=== PATIENT | male | born 1940 | race Caucasian/White ===

== ENCOUNTER 2020-09-20 14:27 | Outpatient (CLI) | payer MEDICARE, BC, SELFPAY ==
[2020-09-20 15:48] LABS: Calcium 9.6 mg/dL (8.5-10.5)
[2020-09-20] MEDS: denosumab 60 mg SDV SUBCUT (16:09)
== END 2020-09-20 14:28 | disposition home or self-care (01) ==
PROVIDERS: Nurse Practitioner; PCP Internal Medicine; Visit Provider Internal Medicine Medical Oncology
DX: M80.08XA Age-related osteoporosis with current pathological fracture, vertebra(e), initial encounter for fracture (principal)
CPT/HCPCS: 82310; 96372; J0897

== ENCOUNTER 2020-11-28 12:54 | Outpatient (CLI) | payer MEDICARE, BC, SELFPAY ==
--- NOTE | 2020-11-28 | XR_ITS ---
WS: [id number] CERVICAL SPINE FLEXION EXTENSION TECHNIQUE: 3 views of the cervical spine: lateral neutral, flexion and extension views. CLINICAL INFORMATION: CERVICALGIA AND PAIN IN THORACIC SPINE COMPARISON: None. FINDINGS: Slight anterolisthesis C3 on C4. Otherwise normal cervical alignment on the neutral view. No instabil ity on flexion-extension. Disc space narrowing worse at C5-6. C7 not well visualized due to shoulder overlap. Normal C1-2 articulation. Posterior elements are normal. No other significant findings. XR/XR cervical spine fl/ex [id number] IMPRESSION: No instability on flexion-extension
--- NOTE | 2020-11-28 | XR_ITS ---
WS: [id number] THORACIC SPINE TECHNIQUE: 3 views of the thoracic spine CLINICAL INFORMATION: PAIN IN THORACIC SPINE COMPARISON: None. FINDINGS: Mild thoracic curve convex left. Sternotomy. Aortic calcification. Cholecystectomy clips. Mild thorac ic kyphosis with chronic appearing anterior wedging in the mid and lower thoracic spine. Anterior wed ging at the thoracolumbar junction with vertebroplasty changes. Partially visualized aortic endograft . XR/XR thoracic spine 3V* [id number] IMPRESSION: 1. Mild thoracic curve and thoracic kyphosis. Osteopenia. 2. Chronic anterior wedging in the mid and lower thoracic spine with prior irving tebroplasty changes at the thoracolumbar junction. 3. No acute appearing thoracic spine findings.
== END 2020-11-28 12:55 | disposition home or self-care (01) ==
PROVIDERS: PCP Internal Medicine; Visit Provider Anesthesiology Pain Medicine
DX: M54.2 Cervicalgia (principal); M54.6 Pain in thoracic spine; M85.88 Other specified disorders of bone density and structure, other site; M48.54XA Collapsed vertebra, not elsewhere classified, thoracic region, initial encounter for fracture
CPT/HCPCS: 72040; 72072

== ENCOUNTER 2021-03-23 13:53 | Outpatient (CLI) | payer MEDICARE, BC, SELFPAY ==
[2021-03-23 15:04] LABS: Albumin Level 3.8 g/dL (3.5-5.2); Calcium 8.8 mg/dL (8.5-10.5)
== END 2021-03-23 13:54 | disposition home or self-care (01) ==
PROVIDERS: PCP Internal Medicine; Referring Provider Nurse Practitioner; Visit Provider Nurse Practitioner
DX: M81.0 Age-related osteoporosis without current pathological fracture (principal)
CPT/HCPCS: 36415; 82040; 82310

== ENCOUNTER 2021-03-28 11:15 | Outpatient (CLI) | payer MEDICARE, BC, SELFPAY ==
[2021-03-28 11:25] VITALS: BP 139/68; PULSE 75; RESP 18; TEMP 36.7; O2SAT 94
[2021-03-28] MEDS: denosumab 60 mg SDV SUBCUT (11:39)
== END 2021-03-28 11:16 | disposition home or self-care (01) ==
LOC: ONCMED 11:16
PROVIDERS: PCP Internal Medicine; Referring Provider Nurse Practitioner; Visit Provider Nurse Practitioner
DX: M81.0 Age-related osteoporosis without current pathological fracture (principal)
CPT/HCPCS: 96372; J0897

== ENCOUNTER 2021-04-26 17:02 | Emergency (ER) | payer MEDICARE, BC, SELFPAY ==
[2021-04-26] VITALS (7 sets, daily range): BP systolic 102–157; BP diastolic 58–99; PULSE 65–75; RESP 15–20; TEMP 36.6; O2SAT 91–96; BMI 30.5
--- NOTE | 2021-04-26 17:17 | ECG_ITS ---
[facility] Test Date: 2021-04-26 Pat Name: Florian Castillo Department: Room: Gender: Male [employer]illing [employer]: : 1940 Requested By: Murali Sultana Order Number: [id number] Raulito MD: Komal Parada M.D. Measurements Intervals May Rate: 82 P: MI: QRS: -82 QRSD: 92 T: 52 QT: 387 QTc: 452 Interpretive Statements ATRIAL FIBRILLATION WITH ABERRANT CONDUCTION OR VENTRICULAR PREMATURE COMPLEXES LEFT AXIS DEVIATION [QRS AXIS < -30] PATTERN CONSISTENT WITH PULMONARY DISEASE NONSPECIFIC ST & T-WAVE ABNORMALITY INTERPRETATION BASED ON A DEFAULT AGE OF 40 YEARS Compared to ECG 05/29/2018 07:52:06 Left-axis deviation now present T-wave abnormality now present Atrial abnormality no longer present ST (T wave) deviation no longer present Electronically Signed On 04-26-2021 23:02:27 CDT by Komal Parada M.D. [id number]
--- NOTE | 2021-04-26 17:17 | XRR_ITS ---
PROCEDURE INFORMATION: Exam: XR Chest Exam date and time: 04/26/2021 5:17 PM Age: 80 years old Clinical indication: Cough; Prior surgery; Surgery type: Cabg TECHNIQUE: Imaging protocol: XR of the chest. Views: 1 view. COMPARISON: CR Chest 1 [place] [id number] 05/27/2018 8:50 PM FINDINGS: Lungs: Mild pulmonary vascular congestion. Bibasilar atelectasis. Pleural spaces: Unremarkable. No pleural effusion. No pneumothorax. Heart/Mediastinum: Cardiomegaly. Bones/joints: Sternotomy wires. XR/XR chest 1V portable [id number] IMPRESSION: 1. Cardiomegaly. 2. Mild pulmonary vascular congestion. 3. Bibasilar atelectasis. Radiation Dose CTDIVOL = (mGy): DLP = (mGy-cm)
--- NOTE | 2021-04-26 17:20 | W.ED.CHESTPA ---
Documented by User: Murali Sultana MD 04/26/21 17:22 HPI - Chest Pain General: Chief Complaint: Chest Pain Stated Complaint: ACTIVE CHEST PAIN Time Seen by Provider: 04/26/21 17:17 History of Present Illness: HPI narrative: This patient is a 80-year-old male who presents to the emergency department with complaint of chest pain. Patient took 2 nitro and now is chest pain-free. Patient has had triple bypass cardiac surgery twice last one was in 2008. Patient states he has had atypical type chest pain symptoms relieved by nitro in the past but this was the first time that he had chest pain like this since his previous bypass. We will do medical evaluation treat as needed MD complaint: chest pain and chest discomfort Pertinent past history: coronary artery disease, prior ND and CABG Onset (ago): minute(s) Timing of current episode: now resolved Onset: during rest Pain location: substernal Pain radiation: none Relieving factors: nitroglycerin Associated symptoms: Deny abdominal pain, dyspnea, fever(s), nausea, palpitations or vomiting Review of Systems General: Reports: 10 or more systems reviewed and unremarkable except in HPI and below Const: Denies: fever(s), chills, body aches or fatigue Eyes: Denies: change in vision or blurry vision ENMT: Denies: throat pain, hoarseness or mouth pain Card: Reports: chest pain; Denies: palpitations, irregular heart rhythm, edema, swelling of feet/ankles or lightheadedness Resp: Denies: dyspnea, productive cough, non-productive cough, wheezing or pain on inspiration GI: Denies: abdominal pain, nausea or vomiting : Denies: flank pain, dysuria, urinary frequency, urinary urgency or urinary hesitancy Musc: Denies: neck pain, back pain, extremity pain, extremity swelling, joint pain, joint swelling, joint redness, joint warmth or limited range of motion Skin/Breast: Denies: rash, pruritus, erythema or skin tenderness Neuro: Denies: headache(s), numbness in extremities or weakness in extremities Psych: Denies: anxiety or depression PFS ED PFSH: Medical History CAD (coronary artery disease) HTN (hypertension) Surgical History S/P AAA (abdominal aortic aneurysm) repair Family History Mother Hypertension Myocardial infarction Social History Alcohol intake: never Physical Exam Const: COMMON NORMALS: no acute distress, average body habitus, patient oriented x3, no limitations, healthy appearing, alert and well nourished HENMT: COMMON NORMALS: normocephalic, atraumatic, hearing grossly normal bilaterally, external ears normal, EAC's normal, TM's normal bilaterally, Normal external nose present, Normal nasal mucous membranes and turbinates present, moist oral mucous membranes, oropharynx normal, dentition normal and gingiva normal HEAD & SCALP: normocephalic and atraumatic NOSE: Normal external nose present and Normal nasal mucous membranes and turbinates present EXTERNAL EAR: Yes external ears normal EXTERNAL AUDITORY CANAL: EAC's normal TYMPANIC MEMBRANE: TM's normal bilaterally Neck/C-Spine: COMMON NORMALS: full ROM, no lymphadenopathy, supple, no meningeal signs, no JVD, Thyroid normal and No carotid bruits THYROID: Thyroid normal Chest: COMMONS NORMALS: normal inspection of the chest, normal palpation of entire chest wall, normal inspection of the breasts and normal palpation of the breasts Breast/axilla inspection: Yes normal inspection of the breasts BREAST/AXILLA PALPATION: Yes normal palpation of the breasts Resp: COMMON NORMALS: normal respiratory effort, No retractions, No use of accessory muscles, clear to auscultation bilaterally and percussion normal AUSCULTATION: clear to auscultation bilaterally PERCUSSION: percussion normal Cardio: COMMON NORMALS: no JVD, regular rate, regular rhythm, S1 normal heart sound present, S2 normal heart sound present, No gallops present (Cardio), No clicks present (Cardio), No murmurs present (Cardio), No rub (Cardio) and Peripheral pulses 2+ throughout RATE: regular rate RHYTHM: regular rhythm HEART SOUNDS: S1 normal heart sound present and S2 normal heart sound present PERIPHERAL PULSES: Peripheral pulses 2+ throughout GI: COMMON NORMALS: Normal to inspection, nondistended, normoactive bowel sounds present, Soft to palpation, non-tender, No hepatosplenomegaly present, no masses and no bruits PALPATION: Yes Soft to palpation and Yes No hepatosplenomegaly present : COMMON NORMALS: Yes no CVA tenderness BLADDER/KIDNEY EXAM: Yes no CVA tenderness Back/Pelvis: COMMON NORMALS: no CVA tenderness, thoracic and lumbar spine normal to inspection, no thoracic nor lumbar tenderness, thoraco-lumbar ROM normal and straight leg raise negative bilaterally Extremity: COMMON NORMALS: normal to inspection, full ROM, capillary refill normal, no joint enlargement, no clubbing, cyanosis or edema, no calf tenderness and no pedal edema Neuro: COMMON NORMALS: patient oriented x3 SENSORIUM/ORIENTATION: Yes alert MENINGEAL SIGNS: Yes no meningeal signs Course ED course: Care transferred to Dr. Haq for shift change Vital Signs: Vital signs: Vital Signs Temperature 97.8 F 04/26/21 17:23 Pulse Rate 75 04/26/21 21:08 Respiratory Rate 18 04/26/21 21:08 Blood Pressure 157/99 04/26/21 21:08 Pulse Oximetry 96 04/26/21 21:08 MDM - Chest Pain MDM Narrative: Medical decision making narrative: This patient is a 80-year-old male who presents to the emergency department with complaint of chest pain. Patient took 2 nitro and now is chest pain-free. Patient has had triple bypass cardiac surgery twice last one was in 2008. Patient states he has had atypical type chest pain symptoms relieved by nitro in the past but this was the first time that he had chest pain like this since his previous bypass. We will do medical evaluation treat as needed Lab Data: Labs: Lab Results 04/26/21 04/26/21 04/26/21 17:54 17:54 17:54 WBC 5.3 10^3/uL 10^3/ uL (4.0-10.0) RBC 3.85 10^6/uL L 10 ^6/uL (4.1-5.3) Hgb 11.9 g/dL g/dL (11.7-16.6) Hct 37.7 % L % (42.0-52.0) MCV 97.9 fl H fl (80-94) MCH 30.9 pg pg (28.0-34.0) MCHC 31.6 g/dL g/dL (30.0-36.0) RDW 13.5 % % (12.1-15.1) Plt Count 220 10^3/cmm 10^3 /cmm (130-400) MPV 9.7 fL fL (7.4-10.4) Neut % (Auto) 45.0 % % Lymph % (Auto) 39.7 % % [place] % (Auto) 7.5 % % Eos % (Auto) 6.6 % % Baso % (Auto) 0.6 % % Neut # (Auto) 2.40 10^3/uL 10^3 /uL (1.8-7.7) Lymph # (Auto) 2.1 10^3/uL 10^3/ uL (0.8-4.8) [place] # (Auto) 0.4 10^3/uL 10^3/ uL (0.2-0.9) Eos # (Auto) 0.4 10^3/uL 10^3/ uL (0.0-0.8) Baso # (Auto) 0.0 10^3/uL 10^3/ uL (0.0-0.1) Nucleated RBC % (a uto) 0 % % Nucleated RBCs # 0.0 /100WBC /100W BC Sodium 138 mmol/L mmol/L (136-145) Potassium 3.9 mmol/L mmol/L (3.5-5.1) Chloride 99 mmol/L mmol/L (98-107) Carbon Dioxide 28 mmol/L mmol/L (22-29) Anion Gap 14.9 (5-19) BUN 24 mg/dL H mg/dL (8-23) Creatinine 1.1 mg/dL mg/dL (0.7-1.2) GFR Calculation Not Reportable Glucose 140 mg/dL H mg/dL (65-115) Calculated Osmolal ity 292 mOsm/kg mOsm/ kg (285-295) Calcium 8.5 mg/dL mg/dL (8.5-10.5) Total Bilirubin 0.4 mg/dL mg/dL (0.15-1.2) AST 11 U/L U/L (0-40) ALT 8 U/L U/L (0-41) Alkaline Phosphata se 66 IU/L IU/L (40-130) Troponin T Baselin e 12 ng/L ng/L (0-15) Troponin T 120 Min lance Delta Troponin T Total Protein 5.9 g/dL L g/dL (6.6-8.7) Albumin 3.6 g/dL g/dL (3.5-5.2) Globulin 2.3 g/dL g/dL (1.3-4.6) Urine Color Urine Appearance Urine pH Ur Specific Gravit y Urine Protein Urine Glucose (UA) Urine Ketones Urine Blood Urine Nitrate Urine Bilirubin Urine Urobilinogen Ur Leukocyte Ina ase Urine RBC Urine WBC Ur Squamous Epith Cells Amorphous Sediment Urine Bacteria 04/26/21 04/26/21 17:54 19:59 WBC RBC Hgb Hct MCV MCH MCHC RDW Plt Count MPV Neut % (Auto) Lymph % (Auto) [place] % (Auto) Eos % (Auto) Baso % (Auto) Neut # (Auto) Lymph # (Auto) [place] # (Auto) Eos # (Auto) Baso # (Auto) Nucleated RBC % (a uto) Nucleated RBCs # Sodium Potassium Chloride Carbon Dioxide Anion Gap BUN Creatinine GFR Calculation Glucose Calculated Osmolal ity Calcium Total Bilirubin AST ALT Alkaline Phosphata se Troponin T Baselin e Troponin T 120 Min lance 11.90 ng/L ng/L (0-15) Delta Troponin T -0.10 ABS# L ABS# (0-10) Total Protein Albumin Globulin Urine Color Yellow (Yellow) Urine Appearance Hazy A (CLEAR) Urine pH 5 (5-7) Ur Specific Gravit y 1.020 (1.005-1.030) Urine Protein Neg (Negative) Urine Glucose (UA) Norm (Normal) Urine Ketones Negative (Negative) Urine Blood Neg (Negative) Urine Nitrate Negative (Negative) Urine Bilirubin Neg (Negative) Urine Urobilinogen Norm mg/dL mg/dL (Negative) Ur Leukocyte Ina ase Trace H (Negative) Urine RBC 0-4 /hpf H /hpf (0-2) Urine WBC 5-10 /hpf H /hpf (0-5) Ur Squamous Epith Cells 5-10 /hpf H /hpf (0-5) Amorphous Sediment Not Reportable Urine Bacteria Trace /hpf /hpf (NONE) Discharge Plan Discharge Patient Disposition: Home Clinical Impression: Chest pain Qualifiers: Chest pain type: unspecified Qualified Code(s): R07.9 - Chest pain, unspecified Condition: Stable Prescriptions: No Action isosorbide mononitrate 60 mg tablet extended release 24 hr 30 mg PO BID RF: 0 hydrochlorothiazide 25 mg tablet 12.5 mg PO BID RF: 0 potassium chloride 10 mEq tablet,ER particles/crystals 10 meq PO DAILY Qty: 90 RF: 3 nitroglycerin [Nitrostat] 0.4 mg tablet, sublingual 0.4 mg SUBLINGUAL Q5M PRN (Reason: chest pain) Qty: 25 RF: 3 terazosin 1 mg capsule 1 mg PO DAILY RF: 0 finasteride 5 mg tablet 5 mg PO DAILY RF: 0 hydrocodone-acetaminophen 7.5-325 mg tablet 1 tab PO TID PRNRF: 0 meclizine 12.5 mg tablet 12.5 mg PO TID PRNRF: 0 citalopram 20 mg tablet 20 mg PO DAILY RF: 0 furosemide [Lasix] 20 mg tablet 20 mg PO DAILY RF: 0 pantoprazole 40 mg tablet,delayed release (DR/EC) 40 mg PO DAILY Qty: 90 RF: 3 Eliquis 5 mg tablet 5 mg PO BID Qty: 180 RF: 3 losartan 100 mg tablet 50 mg PO BID Qty: 90 RF: 3 clonidine HCl 0.1 mg tablet 0.05 mg PO BID PRN (Reason: hypertensive emergency) Qty: 60 RF: 3 ranolazine [Ranexa] 500 mg tablet extended release 12 hr 500 mg PO BID Qty: 180 RF: 3 cilostazol 50 mg tablet 50 mg PO BID Qty: 180 RF: 0 Discharge Orders: Discharge ED (Routine); Ordered 04/26/21 Ordered By: Petty Haq Referrals: Damon Don DO [Primary Care Provider] - 1-3 days Discharge Diet: Advance as tolerated Discharge Activity: Resume usual activity Patient Instructions: Chest Pain (ED) Coding Level of Care Code ED Respiratory Services Manager for Chg Fwd Exam Comprehensive Documented by User: Petty Haq MD 04/26/21 21:17 HPI - Chest Pain General: Chief Complaint: Chest Pain Stated Complaint: ACTIVE CHEST PAIN Time Seen by Provider: 04/26/21 17:17 [facility] ED PFSH: Medical History CAD (coronary artery disease) HTN (hypertension) Surgical History S/P AAA (abdominal aortic aneurysm) repair Family History Mother Hypertension Myocardial infarction Social History Alcohol intake: never Course Vital Signs: Vital signs: Vital Signs Temperature 97.8 F 04/26/21 17:23 Pulse Rate 75 04/26/21 21:08 Respiratory Rate 18 04/26/21 21:08 Blood Pressure 157/99 04/26/21 21:08 Pulse Oximetry 96 04/26/21 21:08 MDM - Chest Pain MDM Narrative: Medical decision making narrative: Patient presents here with chest pain I took him over from Dr. Sultana. Patient's EKGs and troponins here are negative. He is well-appearing here in no distress. He has no signs of acute coronary syndrome or pulmonary embolism. He is stable for discharge is to follow-up his PCP in 3 to 5 days return if worsening. Lab Data: Labs: Lab Results 04/26/21 04/26/21 04/26/21 17:54 17:54 17:54 WBC 5.3 10^3/uL 10^3/ uL (4.0-10.0) RBC 3.85 10^6/uL L 10 ^6/uL (4.1-5.3) Hgb 11.9 g/dL g/dL (11.7-16.6) Hct 37.7 % L % (42.0-52.0) MCV 97.9 fl H fl (80-94) MCH 30.9 pg pg (28.0-34.0) MCHC 31.6 g/dL g/dL (30.0-36.0) RDW 13.5 % % (12.1-15.1) Plt Count 220 10^3/cmm 10^3 /cmm (130-400) MPV 9.7 fL fL (7.4-10.4) Neut % (Auto) 45.0 % % Lymph % (Auto) 39.7 % % [place] % (Auto) 7.5 % % Eos % (Auto) 6.6 % % Baso % (Auto) 0.6 % % Neut # (Auto) 2.40 10^3/uL 10^3 /uL (1.8-7.7) Lymph # (Auto) 2.1 10^3/uL 10^3/ uL (0.8-4.8) [place] # (Auto) 0.4 10^3/uL 10^3/ uL (0.2-0.9) Eos # (Auto) 0.4 10^3/uL 10^3/ uL (0.0-0.8) Baso # (Auto) 0.0 10^3/uL 10^3/ uL (0.0-0.1) Nucleated RBC % (a uto) 0 % % Nucleated RBCs # 0.0 /100WBC /100W BC Sodium 138 mmol/L mmol/L (136-145) Potassium 3.9 mmol/L mmol/L (3.5-5.1) Chloride 99 mmol/L mmol/L (98-107) Carbon Dioxide 28 mmol/L mmol/L (22-29) Anion Gap 14.9 (5-19) BUN 24 mg/dL H mg/dL (8-23) Creatinine 1.1 mg/dL mg/dL (0.7-1.2) GFR Calculation Not Reportable Glucose 140 mg/dL H mg/dL (65-115) Calculated Osmolal ity 292 mOsm/kg mOsm/ kg (285-295) Calcium 8.5 mg/dL mg/dL (8.5-10.5) Total Bilirubin 0.4 mg/dL mg/dL (0.15-1.2) AST 11 U/L U/L (0-40) ALT 8 U/L U/L (0-41) Alkaline Phosphata se 66 IU/L IU/L (40-130) Troponin T Baselin e 12 ng/L ng/L (0-15) Troponin T 120 Min lance Delta Troponin T Total Protein 5.9 g/dL L g/dL (6.6-8.7) Albumin 3.6 g/dL g/dL (3.5-5.2) Globulin 2.3 g/dL g/dL (1.3-4.6) Urine Color Urine Appearance Urine pH Ur Specific Gravit y Urine Protein Urine Glucose (UA) Urine Ketones Urine Blood Urine Nitrate Urine Bilirubin Urine Urobilinogen Ur Leukocyte Ina ase Urine RBC Urine WBC Ur Squamous Epith Cells Amorphous Sediment Urine Bacteria 04/26/21 04/26/21 17:54 19:59 WBC RBC Hgb Hct MCV MCH MCHC RDW Plt Count MPV Neut % (Auto) Lymph % (Auto) [place] % (Auto) Eos % (Auto) Baso % (Auto) Neut # (Auto) Lymph # (Auto) [place] # (Auto) Eos # (Auto) Baso # (Auto) Nucleated RBC % (a uto) Nucleated RBCs # Sodium Potassium Chloride Carbon Dioxide Anion Gap BUN Creatinine GFR Calculation Glucose Calculated Osmolal ity Calcium Total Bilirubin AST ALT Alkaline Phosphata se Troponin T Baselin e Troponin T 120 Min lance 11.90 ng/L ng/L (0-15) Delta Troponin T -0.10 ABS# L ABS# (0-10) Total Protein Albumin Globulin Urine Color Yellow (Yellow) Urine Appearance Hazy A (CLEAR) Urine pH 5 (5-7) Ur Specific Gravit y 1.020 (1.005-1.030) Urine Protein Neg (Negative) Urine Glucose (UA) Norm (Normal) Urine Ketones Negative (Negative) Urine Blood Neg (Negative) Urine Nitrate Negative (Negative) Urine Bilirubin Neg (Negative) Urine Urobilinogen Norm mg/dL mg/dL (Negative) Ur Leukocyte Ina ase Trace H (Negative) Urine RBC 0-4 /hpf H /hpf (0-2) Urine WBC 5-10 /hpf H /hpf (0-5) Ur Squamous Epith Cells 5-10 /hpf H /hpf (0-5) Amorphous Sediment Not Reportable Urine Bacteria Trace /hpf /hpf (NONE) Discharge Plan Discharge Patient Disposition: Home Clinical Impression: Chest pain Qualifiers: Chest pain type: unspecified Qualified Code(s): R07.9 - Chest pain, unspecified Condition: Stable Prescriptions: No Action isosorbide mononitrate 60 mg tablet extended release 24 hr 30 mg PO BID RF: 0 hydrochlorothiazide 25 mg tablet 12.5 mg PO BID RF: 0 potassium chloride 10 mEq tablet,ER particles/crystals 10 meq PO DAILY Qty: 90 RF: 3 nitroglycerin [Nitrostat] 0.4 mg tablet, sublingual 0.4 mg SUBLINGUAL Q5M PRN (Reason: chest pain) Qty: 25 RF: 3 terazosin 1 mg capsule 1 mg PO DAILY RF: 0 finasteride 5 mg tablet 5 mg PO DAILY RF: 0 hydrocodone-acetaminophen 7.5-325 mg tablet 1 tab PO TID PRNRF: 0 meclizine 12.5 mg tablet 12.5 mg PO TID PRNRF: 0 citalopram 20 mg tablet 20 mg PO DAILY RF: 0 furosemide [Lasix] 20 mg tablet 20 mg PO DAILY RF: 0 pantoprazole 40 mg tablet,delayed release (DR/EC) 40 mg PO DAILY Qty: 90 RF: 3 Eliquis 5 mg tablet 5 mg PO BID Qty: 180 RF: 3 losartan 100 mg tablet 50 mg PO BID Qty: 90 RF: 3 clonidine HCl 0.1 mg tablet 0.05 mg PO BID PRN (Reason: hypertensive emergency) Qty: 60 RF: 3 ranolazine [Ranexa] 500 mg tablet extended release 12 hr 500 mg PO BID Qty: 180 RF: 3 cilostazol 50 mg tablet 50 mg PO BID Qty: 180 RF: 0 Discharge Orders: Discharge ED (Routine); Ordered 04/26/21 Ordered By: Petty Haq Referrals: Damon Don DO [Primary Care Provider] - 1-3 days Discharge Diet: Advance as tolerated Discharge Activity: Resume usual activity Patient Instructions: Chest Pain (ED) Coding Level of Care Code ED Respiratory Services Manager for Melany Fwd Exam Comprehensive
[2021-04-26 18:01] LABS: Basophils % 0.6 %; Eosinophils # 0.4 10^3/uL (0.0-0.8); Eosinophils % 6.6 %; Hematocrit 37.7 % (42.0-52.0); Hemoglobin 11.9 g/dL (11.7-16.6); Lymphocytes # 2.1 10^3/uL (0.8-4.8); Lymphocytes % 39.7 %; Mean Corpuscular HGB Conc 31.6 g/dL (30.0-36.0); Mean Corpuscular Hemoglobin 30.9 pg (28.0-34.0); Mean Corpuscular Volume 97.9 fl (80-94); Mean Platelet Volume 9.7 fL (7.4-10.4); Monocytes # 0.4 10^3/uL (0.2-0.9); Monocytes % 7.5 %; Nucleated Red Blood Cells % 0 %; Platelet Count 220 10^3/cmm (130-400); Red Blood Count 3.85 10^6/uL (4.1-5.3); Red Cell Distribution Width 13.5 % (12.1-15.1); White Blood Count 5.3 10^3/uL (4.0-10.0)
--- NOTE | 2021-04-26 18:13 | PC.NURSE ---
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 PATIENT HAS NO FURTHER NEEDS AT THIS TIME.
[2021-04-26 18:15] LABS: Add Urine Culture? No; Add Urine Microscopic? YES; Bacteria Urine TRACE /hpf; Bilirubin Urine Neg (Negative); Blood Urine Neg (Negative); Glucose Urine UA Norm (Normal); Ketones Urine Negative (Negative); Leukocyte Esterase Urine Trace (Negative); Nitrate Urine Negative (Negative); Protein Urine Neg (Negative); RBC Urine 0-4 /hpf (0-2); Urine Appearance Hazy (CLEAR); Urine Color Yellow (Yellow); Urobilinogen Urine Norm (Negative); pH Urine 5 (5-7)
[2021-04-26 18:49] LABS: Alanine Aminotransferase 8 U/L (0-41); Albumin Level 3.6 g/dL (3.5-5.2); Alkaline Phosphatase 66 IU/L (40-130); Anion Gap 14.9 (5-19); Aspartate Amino Transferase 11 U/L (0-40); Blood Urea Nitrogen 24 mg/dL (8-23); Calcium 8.5 mg/dL (8.5-10.5); Carbon Dioxide 28 mmol/L (22-29); Chloride 99 mmol/L (98-107); Globulin 2.3 g/dL (1.3-4.6); Glucose 140 mg/dL (65-115); Osmolality Calculated 292 mOsm/kg (285-295); Potassium 3.9 mmol/L (3.5-5.1); Sodium 138 mmol/L (136-145); Total Bilirubin 0.4 mg/dL (0.15-1.2); Total Protein 5.9 g/dL (6.6-8.7)
[2021-04-26 18:54] LABS: Troponin(5th) Baseline 12 ng/L (0-15)
== END 2021-04-26 21:12 | disposition home or self-care (01) ==
PROVIDERS: Emergency Medicine; Emergency Provider Emergency Medicine; PCP Internal Medicine
DX: R07.9 Chest pain, unspecified (principal); Z79.01 Long term (current) use of anticoagulants; I25.10 Atherosclerotic heart disease of native coronary artery without angina pectoris; I10 Essential (primary) hypertension
CPT/HCPCS: 71045; 80053; 81001; 84484; 85025; 93005; 99284

== ENCOUNTER 2021-09-12 13:04 | Outpatient (CLI) | payer MEDICARE, BC, SELFPAY ==
--- NOTE | 2021-09-12 13:19 | CT_ITS ---
WS: [id number] CT CERVICAL SPINE TECHNIQUE: Noncontrast CT of the cervical spine with coronal and sagittal reformatted images. CLINICAL INFORMATION: CERVICALGIA COMPARISON: None. DLP: 592.[address] scans at [facility] use at least one of these dose optimization techniques: automated e xposure control; mA and/or kV adjustment per patient size (includes targeted exams where dose is matc hed to clinical indication); or iterative reconstruction. FINDINGS: Cervical curve convex RIGHT. Mild to moderate spondylitic changes cervical spine with disc space narr owing worse at C5-C6 and C6-C7 with osteophytic ridging. Normal C1-C2 articulation. No high-grade ramu tral canal stenosis C2-C3: Normal C3-C4: Asymmetric moderate to advanced LEFT facet arthropathy. Moderate to severe LEFT bony foraminal narrowing. Osteophytic ridging. Tiny central protrusion with mild central canal stenosis. RIGHT fora men is patent. C4-C5: Disc osteophyte complex with endplate ridging. Mild LEFT and no significant RIGHT foraminal na rrowing. Mild facet arthropathy. Spinal canal is patent. C5-C6: Disc osteophyte complex with endplate ridging. Mild central canal stenosis with slight contact of the cervical cord. Moderate to severe bilateral bony foraminal narrowing with mild facet arthropa thy. C6-C7: Disc osteophyte complex with endplate ridging. Severe LEFT and mild RIGHT bony foraminal narro wing. Mild facet arthropathy. Mild central canal stenosis. C7-T1: Mild osteophytic ridging. Spinal canal and foramen are patent. Slight encroachment on the far exiting LEFT C8 nerve root. 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 Carotid bulb calcification. RI GHT mastoidectomy with cochlear implant. CT/CT cervical spin wo con* [id number] IMPRESSION: 1. Cervical curve convex RIGHT with moderate spondylitic changes. 2. Small central disc protrusion C3-C4 with mild central canal stenosis. Asymm etric moderate to advanced LEFT facet arthropathy at this level with moderate t o severe LEFT foraminal narrowing. 3. Mild central canal stenosis C5-C6 and C6-C7 due to disc osteophyte complexe s. 4. Multilevel moderate to severe bony foraminal narrowing worse at LEFT C3-C4, bilateral C5-C6, and LEFT C6-C7.
== END 2021-09-12 13:05 | disposition home or self-care (01) ==
PROVIDERS: PCP Internal Medicine; Visit Provider Anesthesiology Pain Medicine
DX: M50.21 Other cervical disc displacement, high cervical region (principal); M48.02 Spinal stenosis, cervical region
CPT/HCPCS: 72125

== ENCOUNTER 2021-09-28 11:08 | Outpatient (CLI) | payer MEDICARE, BC, SELFPAY ==
--- NOTE | 2021-09-28 11:00 | USCV_ITS ---
Florian Castillo Age: 80 Gender: M : 1940 Exam Date: 09/28/2021 11:37 Ordering Phys: Aure Willis Technologist: Charles Butterfield [place] [facility] [place]: left carotid bruit Risk Factors: Previous Vascular Surgery: Right Brachial BP: / Left Brachial BP: / Right Left Velocity (cm/s) Spectral Plaque Velocity (cm/s) Spectral Plaque Syst/Diast Broadening Syst/Diast Broadening 64.40/ 16.00 Prox CCA 69.30 / 16.70 72.60/ 13.70 Mid CCA 63.30 / 14.30 59.00/ 12.80 Distal CCA 73.80 / 21.80 70.90/ 11.10 Prox ICA 124.60/ 23.20 131.50/38.10 Mid ICA 147.70/ 37.50 74.30/ 23.10 Distal ICA 68.30 / 23.40 111.90 ECA 156.60 1.81 ICA/CCA 2.33 Antegrade Vertebral Antegrade 31.60/ 10.50 cm/s 56.20/ 12.10 cm/s Tri Subclavian Tri 52.60 68.90 FINDINGS Comparison:. 12/24/17. Prior right CEA. Carotid arteries are tortuous but not significant stenosis. Mild progressive increase in velocity and plaque in the left carotid artery. Antegrade vertebral arteries. CONCLUSIONS Left ICA stenosis < 50%. Increase in velocity and plaque since 2018. Right ICA stenosis < 50%. Dr. Lori Estevez DO (Electronically Signed) Final Date: 28 September 2021 12:23 S
== END 2021-09-28 11:09 | disposition home or self-care (01) ==
PROVIDERS: PCP Internal Medicine; Visit Provider Nurse Practitioner Family
DX: R09.89 Other specified symptoms and signs involving the circulatory and respiratory systems (principal); I65.23 Occlusion and stenosis of bilateral carotid arteries
CPT/HCPCS: 93880

== ENCOUNTER → 2021-10-10 08:45 | Outpatient (BNVA) | payer MEDICARE, BC, SELFPAY | PROVIDERS: PCP Internal Medicine; Visit Provider Physician Assistant | DX: R52 Pain, unspecified (principal) | CPT/HCPCS: 72040; 72110 ==

== ENCOUNTER → 2021-10-19 10:36 | Outpatient (BNVA) | payer MEDICARE, BC, SELFPAY | PROVIDERS: PCP Internal Medicine; Referring Provider Physician Assistant; Visit Provider Anesthesiology Pain Medicine | DX: M50.90 Cervical disc disorder, unspecified, unspecified cervical region (principal); M54.12 Radiculopathy, cervical region; M47.812 Spondylosis without myelopathy or radiculopathy, cervical region; M79.601 Pain in right arm; M79.602 Pain in left arm; M47.816 Spondylosis without myelopathy or radiculopathy, lumbar region; Z79.891 Long term (current) use of opiate analgesic; Z87.891 Personal history of nicotine dependence | CPT/HCPCS: 99205 ==

== ENCOUNTER 2021-10-23 08:21 | Outpatient (CLI) | payer MEDICARE, BC, SELFPAY ==
--- NOTE | 2021-10-23 10:30 | NM_ITS ---
WS: [id number] NUCLEAR MEDICINE BONE SCAN Radiopharmaceutical: 24.0 Tc-99m MDP mCi IV Postinjection imaging delay: 1 hr CLINICAL INFORMATION: M54.2 - Cervicalgia COMPARISON: June 10, 2019. Radiograph October 10, 2021 FINDINGS: Bone lesions: Thoracic curve convex LEFT. Mild thoracic kyphosis. No acute appearing compression frac tures. No significant uptake in the L1, L2 or L3 superior endplates. Soft tissue contours: Normal. Kidneys: Normal. Other findings: Degenerative type uptake both shoulders and both knees. Probable urinary contaminatio n overlying the RIGHT anterior thigh. NM/NM bone scan whole body* [id number] IMPRESSION: No areas of active uptake in the thoracic or lumbar spine to indicate acute com pression.
== END 2021-10-23 08:22 | disposition home or self-care (01) ==
LOC: RAD 08:22
PROVIDERS: PCP Internal Medicine; Visit Provider Physician Assistant
DX: M54.2 Cervicalgia (principal)
CPT/HCPCS: 78306; A9561

== ENCOUNTER → 2021-10-30 13:49 | Outpatient (BNVA) | payer MEDICARE, BC, SELFPAY | PROVIDERS: PCP Internal Medicine; Visit Provider Anesthesiology Pain Medicine | DX: Z79.891 Long term (current) use of opiate analgesic (principal); Z87.891 Personal history of nicotine dependence; M47.812 Spondylosis without myelopathy or radiculopathy, cervical region | CPT/HCPCS: 64490; 64491; 64492; J3490 ==

== ENCOUNTER → 2021-11-06 14:40 | Outpatient (BNVA) | payer MEDICARE, BC, SELFPAY | PROVIDERS: PCP Internal Medicine; Referring Provider Physician Assistant; Visit Provider Internal Medicine | DX: M81.0 Age-related osteoporosis without current pathological fracture (principal); E55.9 Vitamin D deficiency, unspecified; I10 Essential (primary) hypertension; Z87.891 Personal history of nicotine dependence | CPT/HCPCS: 99204 ==

== ENCOUNTER → 2021-11-13 10:48 | Outpatient (BNVA) | payer MEDICARE, BC, SELFPAY | PROVIDERS: PCP Internal Medicine; Visit Provider Anesthesiology Pain Medicine | DX: M50.90 Cervical disc disorder, unspecified, unspecified cervical region (principal); M54.12 Radiculopathy, cervical region; M47.812 Spondylosis without myelopathy or radiculopathy, cervical region; M47.816 Spondylosis without myelopathy or radiculopathy, lumbar region; M79.601 Pain in right arm; M79.602 Pain in left arm; Z79.891 Long term (current) use of opiate analgesic; Z87.891 Personal history of nicotine dependence | CPT/HCPCS: 99214 ==

== ENCOUNTER 2021-12-05 00:13 | Emergency (ER) | payer MEDICARE, BC, SELFPAY ==
--- NOTE | 2021-12-05 00:16 | ECG_ITS ---
[facility] Test Date: 2021-12-05 Pat Name: Florian Castillo Department: Room: Gender: Male Licensed Clinician: : 1940 Requested By: Scott Senior Order Number: [id number] Raulito MD: Jered Ochoa M.D. Measurements Intervals [place] Rate: 91 P: MD: QRS: -80 QRSD: 89 T: 25 QT: 368 QTc: 454 Interpretive Statements ATRIAL FIBRILLATION WITH ABERRANT CONDUCTION OR VENTRICULAR PREMATURE COMPLEXES PATTERN CONSISTENT WITH PULMONARY DISEASE LEFT ANTERIOR FASCICULAR BLOCK [QRS AXIS <= -45, QR IN I, RS IN II] MINIMAL ST DEPRESSION [0.025+ mV ST DEPRESSION] Compared to ECG 04/26/2021 17:13:46 Left anterior fascicular block now present ST (T wave) deviation now present Left-axis deviation no longer present T-wave abnormality no longer present Electronically Signed On 12-05-2021 17:14:23 CDT by Jered Ochoa M.D. [email or web address].[email or web address]/[id number]
[2021-12-05 00:18] VITALS: BP 138/78; PULSE 88; RESP 16; TEMP 36.7; O2SAT 94; BMI 30.5
--- NOTE | 2021-12-05 00:38 | XRR_ITS ---
PROCEDURE INFORMATION: Exam: XR Chest Exam date and time: 12/05/2021 1:19 AM Age: 81 years old Clinical indication: Sternal or substernal pain; Prior surgery; Surgery date: 6+ months; Surgery type: Open heart; Additional info: Chest pain TECHNIQUE: Imaging protocol: XR of the chest. Views: 1 view. COMPARISON: CR XR chest 2V* [id number] 11/23/2021 2:47 PM FINDINGS: Lungs: Unremarkable. No consolidation. Pleural spaces: Unremarkable. No pleural effusion. No pneumothorax. Heart/Mediastinum: Unremarkable. No cardiomegaly. Vasculature: Calcification of the thoracic aorta and/or great vessels consistent with atherosclerotic vessel disease. Bones/joints: Stable sternotomy. XR/XR chest 1V portable [id number] IMPRESSION: No acute findings.
--- NOTE | 2021-12-05 00:38 | W.ED.CHESTPA ---
HPI - Chest Pain General: Chief Complaint: Chest Pain Stated Complaint: Chests Pain Time Seen by Provider: 12/05/21 00:38 History of Present Illness: Mr. Castillo is a 81-year-old gentleman with significant past medical history of hypertension, hyperlipidemia, CAD, CHF, history of AAA repair presenting to the emergency department due to chest pain. Onset of symptoms was at rest approximately 1-2 hours prior to arrival. He endorses right-sided chest pain with radiation down the right arm. He took 3 nitro which had some relief however symptoms are beginning to return. Prior to this he was at his baseline health. Intensity of symptoms at worst were moderate to severe. No other specific changes in health, exacerbating, or alleviating factors identified. Onset (ago): hour(s) Timing of current episode: constant Prior episodes: Yes Onset: during rest Pain location: right chest Pain radiation: right arm Severity: moderate Quality: aching and sharp Associated symptoms: Reports dyspnea Review of Systems General: Reports: 10 or more systems reviewed and unremarkable except in HPI and below Resp: Reports: dyspnea PFSH ED PFSH: Medical History CAD (coronary artery disease) HTN (hypertension) Surgical History S/P AAA (abdominal aortic aneurysm) repair Family History Mother Hypertension Myocardial infarction Social History Smoking and tobacco status: former smoker Second hand smoke exposure: No Alcohol intake: current Alcohol intake frequency: holidays/special occasions only Alcohol type: beer History of recent travel: No Physical Exam Const: COMMON NORMALS: alert GENERAL APPEARANCE: cooperative and well developed HENMT: COMMON NORMALS: normocephalic and atraumatic HEAD & SCALP: normocephalic and atraumatic Eye: COMMON NORMALS: conjunctivae normal CONJUNCTIVA: Yes conjunctivae normal SCLERA: sclerae normal Neck/C-Spine: COMMON NORMALS: supple GENERAL: Yes trachea midline Resp: COMMON NORMALS: clear to auscultation bilaterally EFFORT & INSPECTION: Yes able to speak in complete sentences AUSCULTATION: clear to auscultation bilaterally Cardio: COMMON NORMALS: regular rate and regular rhythm RATE: regular rate RHYTHM: regular rhythm GI: COMMON NORMALS: Soft to palpation PALPATION: Yes Soft to palpation and No Tenderness to palpation present (GI) PERCUSSION: normal to percussion Extremity: GENERAL: Yes normal exam except as noted and No edema Neuro: COMMON NORMALS: moves all extremities SENSORIUM/ORIENTATION: Yes alert and No Orientation impaired Psych: COMMON NORMALS: mental status grossly normal and Normal thought process present THOUGHT PROCESS: Normal thought process present Course ED course: - Patient was seen and evaluated by me at bedside - Patient placed on cardiac monitors, IV access obtained - Initial evaluation notable for exam as above - Labs and xrays personally interpreted by me. EKG showing atrial fibrillation with no STEMI. 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 - Labs notable for no leukocytosis, normal hemoglobin. Metabolic panel without acute derangement with exception of mildly elevated creatinine. Delta troponin is negative. - Imaging notable for no lobar consolidation or pneumothorax. - Upon serial reexamination after treatment the patient was improved - Based on patient history, evaluation, and testing as interpreted the most likely cause of the patient's condition is chest pain. - The results of ED evaluation were discussed with the patient including disposition options. I strongly recommended admission given what sounds like worsening frequency chest pain concerning for unstable angina. The patient strongly felt desire to go home and reports plan to follow-up with cardiology in the morning. I discussed prescriptions and/or symptomatic cares (if applicable) including appropriate and responsible use, followup plan, and return precautions. The patient verbalized understanding and felt safe for discharge. - Patient discharged in satisfactory condition. Note: Click bubbles or prepopulated dean in note writing are used for assistance with data collection and billing and are inherently more limited than narrative and other text portions of this note. Please use narrative for additional clinical history and defer to narrative/free test for any case of contradictory information. If information appears in only free text or click bubble it should be considered present or absent as reported. Please contact note publications writer for clarifications of clinical information or contradictory information. MDM is a brief summary, contradictory or erroneous seeming information should be clarified and full note should be reviewed. Vital Signs: Vital signs: Vital Signs Temperature 98.1 F 12/05/21 00:18 Pulse Rate 85 12/05/21 04:23 Respiratory Rate 18 12/05/21 04:23 Blood Pressure 147/73 12/05/21 04:23 Pulse Oximetry 96 12/05/21 04:23 MDM - Chest Pain Medical Decision Making 81-year-old gentleman with history of known CAD presenting with chest pain. Overall worse than prior episodes end not as responsive to nitro. Troponins were negative and EKG appears similar to prior. Strongly recommend admission however patient has appointment with cardiology in the morning and desires discharge. Medical Records I reviewed the patient's medical records. Lab Data I reviewed the patient's lab results. : 12/06/21 16:11 12/06/21 16:11 Radiology Impressions Chest X-Ray 12/05/21 00:38 IMPRESSION: No acute findings. Laboratory Results WBC 6.4 10^3/uL (4.0-10.0) 12/06/21 16:11 RBC 4.24 10^6/uL (4.1-5.3) 12/06/21 16:11 Hgb 13.1 g/dL (11.7-16.6) 12/06/21 16:11 Hct 41.4 % (42.0-52.0) L 12/06/21 16:11 MCV 97.6 fl (80-94) H 12/06/21 16:11 MCH 30.9 pg (28.0-34.0) 12/06/21 16:11 MCHC 31.6 g/dL (30.0-36.0) 12/06/21 16:11 RDW 13.5 % (12.1-15.1) 12/06/21 16:11 Plt Count 246 10^3/cmm (130-400) 12/06/21 16:11 MPV 9.6 fL (7.4-10.4) 12/06/21 16:11 Neut % (Auto) 55.2 % 12/06/21 16:11 Lymph % (Auto) 29.5 % 12/06/21 16:11 Spencer % (Auto) 9.8 % 12/06/21 16:11 Eos % (Auto) 4.5 % 12/06/21 16:11 Baso % (Auto) 0.5 % 12/06/21 16:11 Neut # (Auto) 3.55 10^3/uL (1.8-7.7) 12/06/21 16:11 Lymph # (Auto) 1.9 10^3/uL (0.8-4.8) 12/06/21 16:11 Spencer # (Auto) 0.6 10^3/uL (0.2-0.9) 12/06/21 16:11 Eos # (Auto) 0.3 10^3/uL (0.0-0.8) 12/06/21 16:11 Baso # (Auto) 0.0 10^3/uL (0.0-0.1) 12/06/21 16:11 Nucleated RBC % (auto) 0 % 12/06/21 16:11 Nucleated RBCs # 0.0 /100WBC 12/06/21 16:11 PT 16.2 Seconds (12.0-15.1) H 12/06/21 16:11 INR 1.26 (0.83-1.21) H 12/06/21 16:11 Sodium 138 mmol/L (136-145) 12/06/21 16:11 Potassium 3.7 mmol/L (3.5-5.1) 12/06/21 16:11 Chloride 97 mmol/L (98-107) L 12/06/21 16:11 Carbon Dioxide 31 mmol/L (22-29) H 12/06/21 16:11 Anion Gap 13.7 (5-19) 12/06/21 16:11 BUN 22 mg/dL (8-23) 12/06/21 16:11 Creatinine 1.1 mg/dL (0.7-1.2) 12/06/21 16:11 GFR Calculation Not Reportable 12/06/21 16:11 Glucose 89 mg/dL (65-115) 12/06/21 16:11 Calculated Osmolality 289 mOsm/kg (285-295) 12/06/21 16:11 Calcium 9.3 mg/dL (8.5-10.5) 12/06/21 16:11 Total Bilirubin 0.4 mg/dL (0.15-1.2) 12/05/21 00:35 AST 13 U/L (0-40) 12/05/21 00:35 ALT 12 U/L (0-41) 12/05/21 00:35 Alkaline Phosphatase 74 IU/L (40-130) 12/05/21 00:35 Troponin T Baseline 15 ng/L (0-15) 12/05/21 00:35 Troponin T 120 Minute 16.16 ng/L (0-15) H 12/05/21 02:13 Delta Troponin T 1.16 ABS# (0-10) 12/05/21 02:13 NT-Pro-B Natriuret Pep 198 pg/mL (0-450) 12/05/21 00:35 Total Protein 6.1 g/dL (6.6-8.7) L 12/05/21 00:35 Albumin 3.7 g/dL (3.5-5.2) 12/05/21 00:35 Globulin 2.4 g/dL (1.3-4.6) 12/05/21 00:35 Lipase 14 U/L (13-60) 12/05/21 00:35 Discharge Plan Discharge Patient Disposition: Home Clinical Impression: Chest pain Condition: Stable Prescriptions: Continued nitroglycerin 0.4 mg tablet, sublingual See Rx Instructions .ROUTE .COMPLEX Qty: 25 3RF Dose Instruction: DISSOLVE 1 TABLET UNDER TONGUE EVERY 5 MINUTES NEEDED FOR CHEST PAIN *NO MORE THAN 3 DOSES PER EPISODE* Rx Instructions: DISSOLVE 1 TABLET UNDER TONGUE EVERY 5 MINUTES NEEDED FOR CHEST PAIN *NO MORE THAN 3 DOSES PER EPISODE* No Action potassium chloride 10 mEq tablet,ER particles/crystals 10 meq PO DAILY Qty: 90 3RF terazosin 1 mg capsule 1 mg PO DAILY 0RF finasteride 5 mg tablet 5 mg PO DAILY 0RF meclizine 12.5 mg tablet 12.5 mg PO TID PRN0RF furosemide [Lasix] 20 mg tablet 20 mg PO DAILY 0RF Prolia 60 mg/mL syringe 60 mg SUBCUT ONCE Qty: 1 0RF albuterol sulfate [ProAir HFA] 90 mcg/actuation HFA aerosol inhaler 2 puff inhalation QID PRN (Reason: shortness of breath or wheezing) Qty: 6.7 0RF promethazine-DM 6.25-15 mg/5 mL syrup 5 - 10 ml PO Q6H PRN (Reason: cough) Qty: 240 0RF hydrocodone-acetaminophen 10-325 mg tablet 1 tab PO Q8H PRN0RF clonidine HCl 0.1 mg tablet 0.05 mg PO BID PRN (Reason: hypertensive emergency) Qty: 60 3RF ranolazine [Ranexa] 500 mg tablet extended release 12 hr 500 mg PO BID Qty: 180 3RF pantoprazole 40 mg tablet,delayed release (DR/EC) 40 mg PO DAILY Qty: 90 3RF Eliquis 5 mg tablet 5 mg PO BID Qty: 180 3RF losartan 100 mg tablet 50 mg PO BID Qty: 90 3RF hydrochlorothiazide 12.5 mg tablet 12.5 mg PO BID Qty: 180 3RF isosorbide mononitrate 60 mg tablet extended release 24 hr 30 mg PO BID Qty: 90 3RF cilostazol 50 mg tablet 50 mg PO BID Qty: 180 0RF Discharge Orders: Discharge ED (Routine); Ordered 12/05/21 Ordered By: Scott Senior Referrals: Damon Don, [Primary Care Provider] - Discharge Diet: Usual diet Discharge Activity: Resume usual activity Patient Instructions: Chest Pain (ED) Activity Restrictions/Additional Instructions: Thank you for visiting the emergency department. You were seen and evaluated for chest pain. The exact cause of your symptoms is unclear however given the increasing frequency and intensity of symptoms I do believe that you need a further cardiac evaluation. You are electing to have this in the outpatient setting. Please ensure that you attend your cardiology appointment tomorrow. Please return to the emergency department for worsening symptoms or anything else that you are concerned about a feel needs emergency department evaluation. Coding Level of Care Code ED Physicist [employer] for Melany Lindquist
[2021-12-05 00:40] VITALS: BP 124/65; PULSE 92; RESP 16; O2SAT 95
[2021-12-05 00:50] LABS: Basophils # 0.1 10^3/uL (0.0-0.1); Basophils % 0.7 %; Eosinophils # 0.4 10^3/uL (0.0-0.8); Eosinophils % 6.1 %; Hemoglobin 12.1 g/dL (11.7-16.6); Lymphocytes # 2.7 10^3/uL (0.8-4.8); Lymphocytes % 40.1 %; Mean Corpuscular HGB Conc 31.8 g/dL (30.0-36.0); Mean Corpuscular Hemoglobin 30.8 pg (28.0-34.0); Mean Corpuscular Volume 96.7 fl (80-94); Mean Platelet Volume 9.6 fL (7.4-10.4); Monocytes # 0.6 10^3/uL (0.2-0.9); Monocytes % 8.6 %; Neutrophils # 3.01 10^3/uL (1.8-7.7); Neutrophils % 44.1 %; Nucleated Red Blood Cells % 0 %; Platelet Count 222 10^3/cmm (130-400); Red Blood Count 3.93 10^6/uL (4.1-5.3); Red Cell Distribution Width 13.5 % (12.1-15.1); White Blood Count 6.8 10^3/uL (4.0-10.0)
[2021-12-05 01:06] LABS: Troponin(5th) Baseline 15 ng/L (0-15)
[2021-12-05 01:12] LABS: Alanine Aminotransferase 12 U/L (0-41); Albumin Level 3.7 g/dL (3.5-5.2); Alkaline Phosphatase 74 IU/L (40-130); Blood Urea Nitrogen 26 mg/dL (8-23); Calcium 8.3 mg/dL (8.5-10.5); Carbon Dioxide 29 mmol/L (22-29); Chloride 99 mmol/L (98-107); Globulin 2.4 g/dL (1.3-4.6); Glucose 116 mg/dL (65-115); Lipase 14 U/L (13-60); NT Pro B Type Natriuretic Pept 198 pg/mL (0-450); Osmolality Calculated 290 mOsm/kg (285-295); Sodium 137 mmol/L (136-145); Total Bilirubin 0.4 mg/dL (0.15-1.2); Total Protein 6.1 g/dL (6.6-8.7)
[2021-12-05 01:16] LABS: Anion Gap 13.1 (5-19); Aspartate Amino Transferase 13 U/L (0-40); Creatinine Clr Calc Pharmacy 52.8807; Potassium 4.1 mmol/L (3.5-5.1)
[2021-12-05 01:41] VITALS: RESP 16; O2SAT 94
[2021-12-05] MEDS: fentaNYL 50 mcg/mL INJ 2mL IVP (01:41)
[2021-12-05 02:41] LABS: Troponin 5 2HR 16.16 ng/L (0-15)
[2021-12-05 02:45] LABS: Troponin 5 2HR Delta 1.16 ABS# (0-10)
[2021-12-05 04:23] VITALS: BP 147/73; PULSE 85; RESP 18; O2SAT 96
[2021-12-06 16:28] LABS: Basophils % 0.5 %; Eosinophils # 0.3 10^3/uL (0.0-0.8); Eosinophils % 4.5 %; Hematocrit 41.4 % (42.0-52.0); Hemoglobin 13.1 g/dL (11.7-16.6); Lymphocytes # 1.9 10^3/uL (0.8-4.8); Lymphocytes % 29.5 %; Mean Corpuscular HGB Conc 31.6 g/dL (30.0-36.0); Mean Corpuscular Hemoglobin 30.9 pg (28.0-34.0); Mean Corpuscular Volume 97.6 fl (80-94); Mean Platelet Volume 9.6 fL (7.4-10.4); Monocytes # 0.6 10^3/uL (0.2-0.9); Monocytes % 9.8 %; Neutrophils # 3.55 10^3/uL (1.8-7.7); Neutrophils % 55.2 %; Nucleated Red Blood Cells % 0 %; Platelet Count 246 10^3/cmm (130-400); Red Blood Count 4.24 10^6/uL (4.1-5.3); Red Cell Distribution Width 13.5 % (12.1-15.1); White Blood Count 6.4 10^3/uL (4.0-10.0)
[2021-12-06 17:16] LABS: Anion Gap 13.7 (5-19); Blood Urea Nitrogen 22 mg/dL (8-23); Calcium 9.3 mg/dL (8.5-10.5); Carbon Dioxide 31 mmol/L (22-29); Chloride 97 mmol/L (98-107); Glucose 89 mg/dL (65-115); INR 1.26 (0.83-1.21); Osmolality Calculated 289 mOsm/kg (285-295); Potassium 3.7 mmol/L (3.5-5.1); Prothrombin Time (Patient) 16.2 Seconds (12.0-15.1); Sodium 138 mmol/L (136-145)
== END 2021-12-05 04:25 | disposition home or self-care (01) ==
PROVIDERS: Internal Medicine; Emergency Provider Emergency Medicine; PCP Internal Medicine
DX: R07.9 Chest pain, unspecified (principal); I25.10 Atherosclerotic heart disease of native coronary artery without angina pectoris; I10 Essential (primary) hypertension; Z79.01 Long term (current) use of anticoagulants
CPT/HCPCS: 71045; 80053; 83690; 83880; 84484; 85025; 93005; 96374; 99285; J3010

== ENCOUNTER → 2021-12-06 14:36 | Outpatient (BNVA) | payer MEDICARE, BC, SELFPAY | PROVIDERS: PCP Internal Medicine; Visit Provider Internal Medicine | DX: I11.0 Hypertensive heart disease with heart failure (principal); I50.33 Acute on chronic diastolic (congestive) heart failure; I25.10 Atherosclerotic heart disease of native coronary artery without angina pectoris; Z98.890 Other specified postprocedural states; Z86.79 Personal history of other diseases of the circulatory system; I25.810 Atherosclerosis of coronary artery bypass graft(s) without angina pectoris; R07.9 Chest pain, unspecified; Z79.01 Long term (current) use of anticoagulants; Z87.891 Personal history of nicotine dependence | CPT/HCPCS: 36415; 80048; 85025; 85610; 99214 ==

== ENCOUNTER 2021-12-13 11:45 | Observation (INO) | payer MEDICARE, BC, SELFPAY ==
[2021-12-13] VITALS (39 sets, daily range): BP systolic 106–146; BP diastolic 61–93; PULSE 0–91; RESP 14–29; TEMP 36.8; O2SAT 84–99; BMI 29.9
--- NOTE | 2021-12-13 07:57 | XACV_ITS ---
Exam Room: 2 Ht: 183 cm Wt: 100 kg BSA: 2.28 m2 Gender: Male : 1940 Any Known Allergies: Other Exam Priority: Routine Procedure(s): Procedure Description: Diagnostic procedure Procedure Description: Venous Graft Catheterization Procedure Description: DA SILVA Graft Catheterization Procedure Description: Coronary Angiography Diagnostic Cath Status: Elective Diagnostic Findings * Left main artery is subtotally occluded. LAD is ostially occluded. Left circumflex artery is diffusely diseased. Small in size. Occluded in the midsegment. Smallsized diffusely diseased ramus artery seen. RCA is totally occluded. SVG to RCA is patent however is very ectatic with diffuse disease with minimal flow supplied to the PDA SVG to OM: Patent however is ectatic and diffusely diseased DA SILVA to LAD: Patent . * Coronary angiography shows right dominance. Conclusions 1. Left main artery is subtotally occluded. LAD is ostially occluded. Left circumflex artery is diffusely diseased. Small in size. Occluded in the midsegment. Smallsized diffusely diseased ramus artery seen. RCA is totally occluded. SVG to RCA is patent however is very ectatic with diffuse disease with minimal flow supplied to the PDA SVG to OM: Patent however is ectatic and diffusely diseased DA SILVA to LAD: Patent . 2. SVG grafts are not amenable to revascularization because of significant ectasia and diffuse disease. 3. Patient has prior CABG. Recommendations * Aggressive risk factor modification. * Will uptitrate Ranexa. * Outpatient cardiology follow up in 4 weeks. Interventional RX Recommendation: medical therapy and/or counseling Diagnostic RX Recommendation: medical therapy and/or counseling Clinical Evaluation EBL: 5mL-10mL Procedural Details Procedure Consent Obtained. Admit Source: Out Patient. Pre-Procedure Time Out. Identified patient by full name and date of as verbalized by the patient/guarantor. Does the consent match the physician's order: Yes. Accurate & Complete Informed Consent: Yes. Inpatient/Outpatient History & Physical on Chart: Yes. If H&P is completed, is and addenduem needed: No; If yes, is the addendum complete: No. Visualize and Verify Site with Patient/Guarantor: N/A. Relevant Radiology Images available: N/A. The risks, benefits, and alternatives of sedation and/or procedure were discussed by physician. The patient agrees to continue. Procedure started. [facility] Clinical Fraility Score: 4: Vulnerable. 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 Chest Pain Symptom Assessment: Typical Angina Symptoms. Correct patient, site and procedure confirmed by cath team. Current diagnosis: Chest Pain. PERRLA. Strong, equal hand overweaver bilaterally. Lungs clear x 5 lobes. IV Site on Arrival: 20 gauge in the right anticubital. IV Fluids: 0.9% NaCl at KVO. 0 mL infused prior to slab polisher. Pre Procedural Pulses: bilateral dorsalis pedis was 1+. Pre Procedural Pulses: bilateral posterior tibial was Doppled. Oxygen started at 2liters/min via nasal canula. Physician notified. Baseline sample Acquired. HR: 82 BPM. right groin was prepped with chloroprep then draped in the usual sterile fashion. Physician arrived. Physician scrubbed in. Immediate Pre-Procedure Time Out. Correct Patient: Yes; Correct Procedure: Yes; Correct Site: Yes; Correct Patient Position: Yes; Correct Supplies: Yes; Dried Flammable Prep: Yes; Blood Products Available: No;. Lidocaine 1% infiltrated to the right groin. An attempt to gain access to the right femoral artery was unsuccessful. Manual pressure was held as needed to stop the bleeding. Ultrasound obtained to assist with arterial access. Arterial access obtained with micropuncture set. 6fr tpm arrow sheath obtained, unable to advance sheath over wire. 6fr glidesheath in over wire to right femoral artery. A 5 sudanese JL4 catheter in over wire. Multiple views taken of left coronary artery. Catheter removed over the standard wire. A 5 sudanese JR4 catheter in over wire. SVG's to RCA visualized. Multiple views taken of right coronary artery. SVG's to Circumflex visualized. DA SILVA to LAD visualized. Catheter removed over the standard wire. Physician scrubbed out. Post-op diagnosis: severe multivessel CAD. Post Procedure: Pulses reassessed and unchanged. PERRLA. Strong, equal hand overweaver bilaterally. No VTE prophylaxis required. Medication's Wasted: Heparin = 1000 unit. Total IV fluids: 50 mL. Complications: None. Estimated blood loss: 5mL-10mL. Responsiveness - Normal response to verbal stimuli; alert and oriented, PERRLA. Airway - Unaffected, no intervention required; spontaneous ventilation. Circulation: W/N/L, pulses unchanged. Nausea/Vomiting: No. A Manual Compression was successful obtaining hemostatsis at the Right Femoral artery insertion site. Procedure completed. Patient transferred by bed to ICU. Access Site Site: Right Femoral artery Sheath Size: 6 Fr Hemostasis Method: Manual Compression Hemostasis Success: Successful Procedure Medications Start: 10:42 AM Stop: 10:42 AM Medication: Versed Amount: 2 mg Route: I.V. Start: 10:42 AM Stop: 10:42 AM Medication: Fentanyl Amount: 25 mcg Route: I.V. Start: 10:50 AM Stop: 10:50 AM Medication: Versed Amount: 1 mg Route: I.V. Start: 10:50 AM Stop: 10:50 AM Medication: Fentanyl Amount: 50 mcg Route: I.V. Start: 11:14 AM Stop: 11:14 AM Medication: Versed Amount: 1 mg Route: I.V. Start: 11:14 AM Stop: 11:14 AM Medication: Fentanyl Amount: 25 mcg Route: I.V. I, the attending physician, have reviewed and verified all procedure medications. Yes, all medications given per verbal order History/Risk Factors Hypertension: Yes Dyslipidemia: No Peripheral Arterial Disease (PAD): No Myocardial Infarction ([place]): No Obesity: No Renal Disease: No Tobacco Use: Former Prior Interventions PCI: No CABG: Yes Valve Surgery: No Report Signatures Finalized by Jered Ochoa MD on 12/23/2021 05:31 PM
[2021-12-13] MEDS: diphenhydrAMINE 50 mg Capsule PO (09:42)
--- NOTE | 2021-12-13 10:43 | W.PM.OPSUD ---
Surgery/Procedure H&P Update DATE OF PROCEDURE: December 13, 2021 DATE H&P PERFORMED: 12/06/21 H&P UPDATE INFORMATION: I have reviewed H&P completed within last 30 days, I have examined patient prior to procedure and No changes to prior documentation PREOP DIAGNOSIS: Worsening angina PRIMARY INDICATION FOR PROCEDURE: Worsening angina PLANNED PROCEDURE: Operation Date: 12/13/21 10:00 Proposed Procedures p Cardiac Catheterization(Left) - Jered Ochoa M.D Poss[place] percutaneous coronary intervention PATIENT REASSESSED PRIOR TO SEDATION, WITH NO CHANGE NOTED: Yes PHYSICAL EXAM: alert, oriented x 3, clear to auscultation bilaterally and regular rate & rhythm AIRWAY EVAL/ANESTHESIA PLAN: ASA IV, Monitored Anesthesia, Local Anesthesia, Risks, benefits & alternatives of sedation and/or procedure discussed and Patient agrees to continue as planned
[2021-12-13] MEDS: sodium chloride 0.9% 1,000 ML 50 ML IV (12:05)
--- NOTE | 2021-12-13 13:21 | PC.NURSE ---
Patient arrived to ICU at 1145. Right groin site clean dry and intact. No s/s of bleeding of hematoma. Family bedside.
--- NOTE | 2021-12-13 14:30 | ECG_ITS ---
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 Measurements Intervals [place] Rate: 77 P: WI: QRS: -76 QRSD: 110 T: -71 QT: 404 QTc: 458 Interpretive Statements ATRIAL FIBRILLATION WITH ABERRANT CONDUCTION OR VENTRICULAR PREMATURE COMPLEXES LEFT ANTERIOR FASCICULAR BLOCK [QRS AXIS <= -45, QR IN I, RS IN II] MODERATE ST DEPRESSION [0.05+ mV ST DEPRESSION] Compared to ECG 12/05/2021 00:26:51 No significant changes Electronically Signed On 12-13-2021 21:22:43 CDT by Jocelin Valenzuela M.D. [email or web address] [email or web address].[employer]/store/OM/[id number]
[2021-12-13] MEDS: nitroglycerin 0.4 mg sublingual Tablet SUBLINGUAL (14:32)
[2021-12-13] MEDS: fentaNYL 50 mcg/mL INJ 2mL IVP ×2 (18:33→19:59)
[2021-12-13] MEDS: fentaNYL 50 mcg/mL INJ 2mL 25 MCG IVP (18:34)
[2021-12-13] MEDS: ondansetron 2 mg/ML SDV 2 mL 4 MG IVP (18:37)
[2021-12-13 18:44] LABS: NT Pro B Type Natriuretic Pept 538 pg/mL (0-450)
[2021-12-13 19:51] LABS: Basophils % 0.6 %; Eosinophils # 0.3 10^3/uL (0.0-0.8); Eosinophils % 4.4 %; Hemoglobin 11.7 g/dL (11.7-16.6); Lymphocytes # 2.5 10^3/uL (0.8-4.8); Lymphocytes % 38.8 %; Mean Corpuscular HGB Conc 31.6 g/dL (30.0-36.0); Mean Corpuscular Hemoglobin 30.7 pg (28.0-34.0); Mean Corpuscular Volume 97.1 fl (80-94); Mean Platelet Volume 9.8 fL (7.4-10.4); Monocytes # 0.6 10^3/uL (0.2-0.9); Monocytes % 9.8 %; Neutrophils % 45.8 %; Nucleated Red Blood Cells % 0 %; Platelet Count 234 10^3/cmm (130-400); Red Blood Count 3.81 10^6/uL (4.1-5.3); Red Cell Distribution Width 13.3 % (12.1-15.1); White Blood Count 6.3 10^3/uL (4.0-10.0)
--- NOTE | 2021-12-13 20:26 | PC.NURSE ---
1899-Dr. Ochoa had left patient's bedside from holding pressure on patient's groin site where there was a large hematoma from heart catheteration. Noted that the hematoma had groin in hardness and size. Held manual pressure to groin site for approximately 5min while a fem-stop was obtained. Placed Fem-stop to groin site and put pressure up to approximately [address] Ochoa. After placing the fem-stop hematoma did not grow in size or hardness. Did an EKG at bedside due to changes noted on monitor, but was not shown in the 12 lead EKG. Will continue to monitor groin site every 10mins.
--- NOTE | 2021-12-13 20:33 | PC.NURSE ---
1999- No change in hematoma. Starting to let air out of fem-stop at 10 at a time every 15mins. Then will leave fem-stop in place for a couple hours. Gave fentanyl 50mcg for back pain. The back pain is chronic and patient does not tolerate laying on his back at home. So encouraged him to try and get some sleep when the fentanyl starts to work. Patient verbalized his understanding.
--- NOTE | 2021-12-13 21:55 | PC.NURSE ---
Patient is rating his pain 10/10, but is falling asleep when not being bothered rather quickly. This is a chronic pain due to him having to lay on his back. Will allow him to turn on his side at 2245.
[2021-12-14] VITALS (42 sets, daily range): BP systolic 98–159; BP diastolic 46–108; PULSE 72–91; RESP 10–28; TEMP 36.8; O2SAT 88–99
--- NOTE | 2021-12-14 00:37 | PC.NURSE ---
2044-All air is now out of the fem-stop. Still have a baseball sized hematoma to right groin that is soft. Will keep fem-stop in place for an hour before removing it. Checking site every 15mins. 2144-Removed fem-stop from patient's groin. No bleeding noted externally. Still baseball sized hematoma that is soft in place. Checking groin every 15mins. 2244-Allowed patient to roll to right side due to pain in his back. Placed pillows under his right side and patient stated he felt relief from back pain with movement. Will continue to check groin every 15min. 2344-No change in hematoma. No signs of bleeding. Bruising is becoming more apparent at groin site. Will monitor for any signs or symptoms of bleeding
[2021-12-14] MEDS: nitroglycerin 0.4 mg sublingual Tablet SUBLINGUAL ×6 (00:58→13:32)
--- NOTE | 2021-12-14 00:58 | ECG_ITS ---
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 Measurements Intervals [place] Rate: 81 P: PA: QRS: -85 QRSD: 102 T: 62 QT: 393 QTc: 459 Interpretive Statements ATRIAL FIBRILLATION WITH ABERRANT CONDUCTION OR VENTRICULAR PREMATURE COMPLEXES LEFT AXIS DEVIATION [QRS AXIS < -30] LOW QRS VOLTAGE IN EXTREMITY LEADS [QRS DEFLECTION < 0.5 mV IN LIMB LEADS] ST DEVIATION AND MODERATE T-WAVE ABNORMALITY, CONSIDER ANTERIOR ISCHEMIA [-0.1+ mV T-WAVE IN V3/V4] Compared to ECG 12/13/2021 15:57:52 Left-axis deviation now present Low QRS voltage now present T-wave abnormality now present Possible ischemia now present Left anterior fascicular block no longer present ST (T wave) deviation no longer present Electronically Signed On 12-14-2021 22:25:40 CDT by Jered Ochoa M.D. [email or web address].[employer]/store/OM/[id number]
[2021-12-14] MEDS: fentaNYL 50 mcg/mL INJ 2mL IVP (01:24)
[2021-12-14] MEDS: temazepam 15 mg Capsule PO (01:56)
--- NOTE | 2021-12-14 02:09 | PC.NURSE ---
Patient received fentanyl for back pain and nitro for chest pain. Patient's chest pain starts in right arm and moves into chest. The nitro relieved the chest pain, but the fentanyl did not relieve back pain. Patient rates pain 10/10, but is falling asleep while talking to staff. Also states pain gets better but remains 10/10.
[2021-12-14] MEDS: nitroglycerin drip 50 MG/250 ML PREMIX IV ×2 (03:22→03:37)
[2021-12-14] MEDS: nitroglycerin drip 50 MG/250 ML PREMIX 6 MG IV (03:43)
[2021-12-14] MEDS: nitroglycerin drip 50 MG/250 ML PREMIX 9 MG IV (03:48)
[2021-12-14] MEDS: nitroglycerin drip 50 MG/250 ML PREMIX 12 MG IV (03:53)
[2021-12-14] MEDS: nitroglycerin drip 50 MG/250 ML PREMIX 15 MG IV ×2 (03:58→05:03)
[2021-12-14] MEDS: nitroglycerin drip 50 MG/250 ML PREMIX 18 MG IV (04:03)
--- NOTE | 2021-12-14 04:11 | PC.NURSE ---
Patient reports that IV nitroglycerin is not helping to relieve his chest pain, when one sublingual nitro would immediately relieve his pain. Patient reports that if his SBP is 140 or greater than he has chest pain. Turned his monitor so that he could not watch his BP while titrating up his nitroglycerin drip. Titrated up to Nitroglycerin 60mcg/min and he finally fell asleep. BP remained stable while titrating drip up. Will continue to monitor his BP so that his SBP does not drop below [address] Ochoa.
--- NOTE | 2021-12-14 09:38 | PC.NURSE ---
Patient currently refusing to take aspirin ordered by rotary drill rig operator Dr. Ochoa because previous doctor, Dr. Givens told him not to take it in the past.
--- NOTE | 2021-12-14 10:11 | USCV_ITS ---
Florian Castillo Age: 81 Gender: M : 1940 Exam Date: 12/14/2021 14:10 Ordering Phys: Jered Ochoa M.D ([email or web address]) Technologist: Ashley Galaviz [place] [facility] [place]: Chest pain BP: 133 / 68 HR: 84 Rhythm: Sinus Technical Quality: Adequate MEASUREMENTS (Male / Female) Normal Values 2D ECHO LV Diastolic Diameter PLAX 4.3 cm 4.2 - 5.9 / 3.9 - 5.3 cm LV Systolic Diameter PLAX 3.1 cm IVS Diastolic Thickness 1.1 cm 0.6 - 1.0 / 0.6 - 0.9 cm IVS Systolic Thickness 1.5 cm LVPW Diastolic Thickness 1.3 cm 0.6 - 1.0 / 0.6 - 0.9 cm LVPW Systolic Thickness 1.9 cm RV Chamber Size 2.7 cm LVOT Diameter 2.0 cm LV Ejection Fraction 2D Teich 54.6 % LV Ejection Fraction MOD 2C 51.5 % LV Ejection Fraction 2C AL 48.4 % LA Diameter 4.1 cm LA Width 3.1 cm LA Height 4.5 cm RA Width 3.1 cm RA Height 3.9 cm Aorta at Sinotubular Diameter 2.4 cm M-MODE Aortic Annulus Diameter 3.4 cm LA Ao Ratio MM 1.3 MV E Point Septal Separation 0.9 cm DOPPLER AV Peak Velocity 143.0 cm/s LVOT Peak Velocity 93.0 cm/s AV Area Cont Eq vti 2.4 cm squared AV Area Cont Eq pk 2.0 cm squared MV Area PHT 5.0 cm squared Mitral E to A Ratio 2.7 MV E' Velocity 59.4 cm/s Mitral E to MV E' Ratio 10.7 Mitral E to LV E' Lateral Ratio 10.8 Mitral E to LV E' Septal Ratio 10.6 TR Peak Velocity 304.5 cm/s TR Peak Gradient 37.1 mmHg TR Mean Velocity 235.1 cm/s TR Mean Gradient 23.5 mmHg TR Velocity Time Integral 98.0 cm Right Atrial Pressure 8.0 mmHg Pulmonary Artery Systolic Pressu 45.1 mmHg PV Peak Velocity 85.0 cm/s RV Acceleration Time 0.1 s RV Ejection Time 0.3 s RV AcT/ET 0.3 FINDINGS Left Ventricle Normal left ventricular size. LV is grossly normal. Right Ventricle Grossly normal Right Atrium The right atrium is normal in size. Left Atrium The left atrium is normal in size. Mitral Valve Moderate mitral annular calcification without significant stenosis or prolapse. There is trace mitral regurgitation. Aortic Valve Aortic valve is thickened. No significant stenosis. There is no aortic regurgitation. Tricuspid Valve Structurally normal tricuspid valve without significant stenosis. Mild tricuspid regurgitation. RVSP is 40-45mmHg. This is consistent with mild pulmonary hypertension Pulmonic Valve Not well visualized Pericardium Normal pericardium without effusion. Aorta Normal ascending aorta dimension. IVC CONCLUSIONS Technically limited quality echocardiogram because of poor ultrasonic windows LV is grossly normal Moderate mitral annular calcification. Trace mitral regurgitation Mild tricuspid regurgitation. This is consistent with mild pulmonary hypertension Accurate comparison with prior echocardiogram from 2018 not possible because of poor visualization however no significant gross changes seen Jered Ochoa MD (Electronically Signed) Final Date: 16 Dec 2021 20:54 S
[2021-12-14 10:39] LABS: Basophils % 0.3 %; Eosinophils # 0.2 10^3/uL (0.0-0.8); Eosinophils % 3.1 %; Hematocrit 35.2 % (42.0-52.0); Hemoglobin 11.2 g/dL (11.7-16.6); Lymphocytes # 1.6 10^3/uL (0.8-4.8); Lymphocytes % 27.7 %; Mean Corpuscular HGB Conc 31.8 g/dL (30.0-36.0); Mean Corpuscular Hemoglobin 30.9 pg (28.0-34.0); Mean Platelet Volume 10.1 fL (7.4-10.4); Monocytes # 0.4 10^3/uL (0.2-0.9); Monocytes % 7.2 %; Neutrophils # 3.57 10^3/uL (1.8-7.7); Neutrophils % 61.2 %; Nucleated Red Blood Cells % 0 %; Platelet Count 206 10^3/cmm (130-400); Red Blood Count 3.63 10^6/uL (4.1-5.3); Red Cell Distribution Width 13.2 % (12.1-15.1); White Blood Count 5.8 10^3/uL (4.0-10.0)
[2021-12-14 10:51] LABS: Blood Urea Nitrogen 19 mg/dL (8-23); Calcium 8.5 mg/dL (8.5-10.5); Carbon Dioxide 31 mmol/L (22-29); Chloride 100 mmol/L (98-107); Glucose 139 mg/dL (65-115); Osmolality Calculated 291 mOsm/kg (285-295); Sodium 138 mmol/L (136-145)
[2021-12-14 10:52] LABS: Anion Gap 11.3 (5-19); Potassium 4.3 mmol/L (3.5-5.1)
[2021-12-14 11:02] LABS: Slide Review Slide Review Perform
--- NOTE | 2021-12-14 11:18 | PC.NURSE ---
Patients condition still causing a lot of chest pain and isn't controlled well with meds available on SEP except for the nitro gtt. Patient wants the nitro gtt and pills available to him. Non responsive to teaching and education given to patient on how nitro works. Patient very adamant on being discharged, even though he cant be discharged on the nitro gtt.
--- NOTE | 2021-12-14 11:20 | PC.NURSE ---
Dr. Ochoa aware of patients condition. Meeting planned for at 1330 for options for the patient including hospice for pain management
--- NOTE | 2021-12-14 14:09 | P.DS_ITS ---
Discharge Providers Date of Admission: 12/13/21 11:45 Date of Discharge: December 14, 2021 Attending Provider at Admission: Jered Ochoa M.D Attending Provider at Discharge: Jered Ochoa M.D Primary Care Provider: Damon Don DO Reason for Visit 2 Reason for Visit: Worsening angina Brief History: 81 Year old man with PMH of CAD s/p CABG in the past who presented for an outpatient cardiac catheterization secondary to typical worsening symptoms of chest pain. Hospital Course Hospital Course 81 Year old man with PMH of CAD s/p CABG in the past who presented for an outpatient cardiac catheterization secondary to typical worsening symptoms of chest pain. Coronary angiogram showed patent DA SILVA to LAD. SVG to OM and SVG to RCA are patent however are significantly ectatic and diffusely diseased with very slow flow. Plan was for discharge home on the day of procedure. However right before his discharge he sneezed forcefully and immediately formed a large sized right groin hematoma. Pressure was held and patient was kept in the hospital overnight for observation. He did have intermittent chest discomfort requiring nitro drip as well. We decided to uptitrate his Ranexa as medical therapy will be pursued at this time. All options including possible attempt at INVENTORY REPRESENTATIVE revascularization of RCA discussed with family who want to proceed with medical therapy. Hemoglobin had mild decrease Physical Exam Narrative: GENERAL: Patient is alert, awake and oriented x3. [] NECK: No jugular vein distension. [] HEENT: No cyanosis. No icterus. No pallor. [] HEART: Regular S1 and S2. No murmur, rub or gallop. [] LUNGS: Clear to auscultate bilaterally. [] ABDOMEN: Soft, nontender and nondistended. Positive bowel sounds. No guarding, rebound or tenderness. [] CENTRAL NERVOUS SYSTEM: Grossly nonfocal. [] EXTREMITIES: Right groin has medium sized hematoma. Discharge Data Studies Completed and Pending Pending at discharge Category Date Time Status GLOBAL CLIMATE CHANGE RESEARCHER request for service Routine Exams 12/13/21 07:57 Taken CV. echo complete* [id number] Routine Ultrasound 12/14/21 10:11 Ordered Laboratory Results WBC 5.8 10^3/uL (4.0-10.0) 12/14/21 09:50 RBC 3.63 10^6/uL (4.1-5.3) L 12/14/21 09:50 Hgb 11.2 g/dL (11.7-16.6) L 12/14/21 09:50 Hct 35.2 % (42.0-52.0) L 12/14/21 09:50 MCV 97.0 fl (80-94) H 12/14/21 09:50 MCH 30.9 pg (28.0-34.0) 12/14/21 09:50 MCHC 31.8 g/dL (30.0-36.0) 12/14/21 09:50 RDW 13.2 % (12.1-15.1) 12/14/21 09:50 Plt Count 206 10^3/cmm (130-400) 12/14/21 09:50 MPV 10.1 fL (7.4-10.4) 12/14/21 09:50 Neut % (Auto) 61.2 % 12/14/21 09:50 Lymph % (Auto) 27.7 % 12/14/21 09:50 [place] % (Auto) 7.2 % 12/14/21 09:50 Eos % (Auto) 3.1 % 12/14/21 09:50 Baso % (Auto) 0.3 % 12/14/21 09:50 Neut # (Auto) 3.57 10^3/uL (1.8-7.7) 12/14/21 09:50 Lymph # (Auto) 1.6 10^3/uL (0.8-4.8) 12/14/21 09:50 [place] # (Auto) 0.4 10^3/uL (0.2-0.9) 12/14/21 09:50 Eos # (Auto) 0.2 10^3/uL (0.0-0.8) 12/14/21 09:50 Baso # (Auto) 0.0 10^3/uL (0.0-0.1) 12/14/21 09:50 Nucleated RBC % (auto) 0 % 12/14/21 09:50 Nucleated RBCs # 0.0 /100WBC 12/14/21 09:50 Sodium 138 mmol/L (136-145) 12/14/21 09:50 Potassium 4.3 mmol/L (3.5-5.1) 12/14/21 09:50 Chloride 100 mmol/L (98-107) 12/14/21 09:50 Carbon Dioxide 31 mmol/L (22-29) H 12/14/21 09:50 Anion Gap 11.3 (5-19) 12/14/21 09:50 BUN 19 mg/dL (8-23) 12/14/21 09:50 Creatinine 1.1 mg/dL (0.7-1.2) 12/14/21 09:50 GFR Calculation Not Reportable 12/14/21 09:50 Glucose 139 mg/dL (65-115) H 12/14/21 09:50 Calculated Osmolality 291 mOsm/kg (285-295) 12/14/21 09:50 Calcium 8.5 mg/dL (8.5-10.5) 12/14/21 09:50 NT-Pro-B Natriuret Pep 538 pg/mL (0-450) H 12/13/21 18:05 Blood Type O Positive 12/13/21 19:06 Rho(D) Type Positive 12/13/21 19:06 Antibody Screen Negative 12/13/21 19:06 Vitals Last Vital Signs Temp 98.2 F 12/13/21 09:32 Pulse 86 12/14/21 11:29 Resp 22 H 12/14/21 04:25 BP 123/70 12/14/21 04:25 Pulse Ox 93 12/14/21 11:29 Discharge Plan Discharge Patient Disposition: Home Condition: Stable Prescriptions: Continued potassium chloride 10 mEq tablet,ER particles/crystals 10 meq PO DAILY Qty: 90 3RF terazosin 1 mg capsule 1 mg PO DAILY 0RF finasteride 5 mg tablet 5 mg PO DAILY 0RF meclizine 12.5 mg tablet 12.5 mg PO TID PRN (Reason: Dizziness) 0RF furosemide [Lasix] 20 mg tablet 20 mg PO DAILY 0RF Prolia 60 mg/mL syringe 60 mg SUBCUT ONCE Qty: 1 0RF albuterol sulfate [ProAir HFA] 90 mcg/actuation HFA aerosol inhaler 2 puff inhalation QID PRN (Reason: shortness of breath or wheezing) Qty: 6.7 0RF promethazine-DM 6.25-15 mg/5 mL syrup 5 - 10 ml PO Q6H PRN (Reason: cough) Qty: 240 0RF hydrocodone-acetaminophen 10-325 mg tablet 1 tab PO Q8H PRN (Reason: Pain, Mild) 0RF clonidine HCl 0.1 mg tablet 0.05 mg PO BID PRN (Reason: hypertensive emergency) Qty: 60 3RF pantoprazole 40 mg tablet,delayed release (DR/EC) 40 mg PO DAILY Qty: 90 3RF Eliquis 5 mg tablet 5 mg PO BID Qty: 180 3RF hydrochlorothiazide 12.5 mg tablet 12.5 mg PO BID Qty: 180 3RF isosorbide mononitrate 60 mg tablet extended release 24 hr 30 mg PO BID Qty: 90 3RF cilostazol 50 mg tablet 50 mg PO BID Qty: 180 0RF nitroglycerin 0.4 mg tablet, sublingual See Rx Instructions .ROUTE .COMPLEX Qty: 25 3RF Dose Instruction: DISSOLVE 1 TABLET UNDER TONGUE EVERY 5 MINUTES NEEDED FOR CHEST PAIN *NO MORE THAN 3 DOSES PER EPISODE* Rx Instructions: DISSOLVE 1 TABLET UNDER TONGUE EVERY 5 MINUTES NEEDED FOR CHEST PAIN *NO MORE THAN 3 DOSES PER EPISODE* losartan 100 mg tablet 50 mg PO BID Qty: 90 3RF Changed Ranexa 500 mg tablet extended release 12 hr 1,000 mg PO BID Qty: 180 3RF Discharge Orders: Discharge Order (Routine); Ordered 12/13/21 Ordered By: Jered Ochoa Other Ambulatory Orders: CV. echo complete* [id number] (Routine) Timeframe: 2 Weeks Facility: [facility] - Location: Radiology Ordered By: Jered Ochoa Referrals: Jered Ochoa M.D [Physician] - 1 month (Please note change in appointment ,cancel February appointment -moved to new appointment Saturday to time of 2:00 pm ) Darryn Willis FNP [Nurse Practitioner] - (Darryn Willis APN NURSE appointment . December 25 2021 at time of 10:45 am for post hospital angiogram /wound check /and will need lab test.) Discharge Diet: Cardiac and Low Salt Discharge Activity: Increase activity as tolerated Patient Instructions: Heart Healthy Diet, Opioid Safety, Post Angiogram Home Care Instructions Discharge Attestations Time Spent in Discharge Care*: greater than 30 min Quality Metrics Clinical Quality Measures [ No reported AMI, CVA or VTE this stay] Coding Level of Care Code Acute Chg FW DC note
--- NOTE | 2021-12-14 15:25 | PC.NURSE ---
Patient discharged to main exit via W/C by staff. All IV's removed. Patient discharge instructions, activity restrictions, and new medications explained to patient and family, they all verbalized understanding. Hematoma site on leg intact with no fresh bleeding. Dressing also dry and intact.
== END 2021-12-14 15:11 | disposition home or self-care (01) ==
LOC: ICU 12:13
PROVIDERS: Admitting Provider Internal Medicine; PCP Internal Medicine; Visit Provider Internal Medicine
DX: I25.10 Atherosclerotic heart disease of native coronary artery without angina pectoris (principal); I25.82 Chronic total occlusion of coronary artery; I50.33 Acute on chronic diastolic (congestive) heart failure; I11.0 Hypertensive heart disease with heart failure; Z87.891 Personal history of nicotine dependence; I48.91 Unspecified atrial fibrillation
CPT/HCPCS: 36415; 80048; 83880; 85025; 86850; 86900; 93005; 93306; 93455; 96360; 99152; 99153; C1769; C1887; C1894; G0378; J1644; J2250; J2405; J3010; J3490; J7030; Q0163; Q9967

== ENCOUNTER 2021-12-18 08:45 | Emergency (ER) | payer MEDICARE, BC, SELFPAY ==
[2021-12-18 08:58] VITALS: BP 104/63; PULSE 63; RESP 16; TEMP 36.8; O2SAT 91; BMI 29.8
--- NOTE | 2021-12-18 09:12 | USR_ITS ---
PROCEDURE INFORMATION: Exam: US Duplex Right Lower Extremity Arteries Or Arterial Bypass Grafts Exam date and time: 12/18/2021 9:41 AM Age: 81 years old Clinical indication: Pain; Other: Very large and bruised right groin; Leg, upper; Prior surgery; Surgery date: 3-7 days post-operative; Surgery type: Cath done 12/13/2021; Additional info: Recent cath, swelling and pain, concern for extrav/pseudoan TECHNIQUE: Imaging protocol: Right Real-time duplex scan of the arteries or arterial bypass grafts of the right lower extremity with 2-D galan scale, color Doppler flow and spectral waveform analysis. Images documented and saved. COMPARISON: NM bone scan whole body* [id number] 10/23/2021 10:30 AM FINDINGS: Right external iliac artery: Patent Right common femoral artery: Patent Right superficial femoral artery: Not assessed. Right popliteal artery: Not assessed. Right calf/foot arteries: Not assessed. Soft tissues: There is a mixed density mass in the right inguinal region measuring roughly 5 cm diameter. There is no internal blood flow by color Doppler interrogation. The location of the mass relative to the vasculature cannot be determined based on these images. US/[place] [id number] IMPRESSION: 1. Incomplete evaluation for pseudoaneurysm. 2. 5 cm diameter avascular mass in the right inguinal region suggests hematoma. The relationship of the mass to the vasculature cannot be adequately assessed on these images.
--- NOTE | 2021-12-18 09:16 | W.ED.ABDPA2 ---
HPI - Abdominal Pain General: Chief Complaint: Abdominal Pain Stated Complaint: bleeding and hurting Time Seen by Provider: 12/18/21 08:56 History of Present Illness: Patient comes in with right groin pain. States he had a angiogram last week and is on Eliquis. States that prior to leaving the hospital he had some bleeding in that area and was kept an extra day. States that this morning he noticed a little bit more swelling, but more severe pain in that area. He is concerned that he may be bleeding out. Associated Symptoms: Denies dysuria, fever(s), nausea and vomiting Review of Systems Const: Denies: fever(s) or body aches Eyes: Denies: change in vision or blurry vision ENMT: Denies: throat pain or odynophagia Card: Denies: chest pain or palpitations Resp: Denies: dyspnea or productive cough GI: Denies: abdominal pain, nausea or vomiting : Denies: flank pain or dysuria Musc: Denies: neck pain or back pain Skin/Breast: Denies: rash or pruritus Neuro: Denies: headache(s) or numbness in extremities Psych: Denies: anxiety or change in appetite Endo: Denies: polyuria or excessive sweating PFSH ED PFSH: Medical History CAD (coronary artery disease) HTN (hypertension) Surgical History S/P AAA (abdominal aortic aneurysm) repair Family History Mother Hypertension Myocardial infarction Social History Smoking and tobacco status: former smoker Second hand smoke exposure: No Alcohol intake: current Alcohol intake frequency: holidays/special occasions only Alcohol type: beer History of recent travel: No Physical Exam Const: COMMON NORMALS: no acute distress, patient oriented x3, healthy appearing and alert HENMT: COMMON NORMALS: normocephalic and atraumatic HEAD & SCALP: normocephalic and atraumatic Eye: COMMON NORMALS: Equal, round and reactive pupils present and EOMs intact bilaterally PUPIL: Yes Equal, round and reactive pupils present Neck/C-Spine: COMMON NORMALS: full ROM and supple Resp: COMMON NORMALS: normal respiratory effort, No retractions and No use of accessory muscles Cardio: COMMON NORMALS: regular rate and regular rhythm RATE: regular rate RHYTHM: regular rhythm GI: COMMON NORMALS: Normal to inspection, nondistended, normoactive bowel sounds present, Soft to palpation and non-tender PALPATION: Yes Soft to palpation : OTHER: Large hematoma tender to palpation in the right groin Back/Pelvis: COMMON NORMALS: thoracic and lumbar spine normal to inspection and no thoracic nor lumbar tenderness Extremity: COMMON NORMALS: normal to inspection and full ROM Neuro: COMMON NORMALS: patient oriented x3 SENSORIUM/ORIENTATION: Yes alert Psych: COMMON NORMALS: mental status grossly normal and cooperative Skin: COMMON NORMALS: no rashes or lesions noted and no wounds GENERAL SKIN EXAM: no rashes or lesions noted Course Vital Signs: Vital signs: Vital Signs Temperature 98.2 F 12/18/21 08:58 Pulse Rate 69 12/18/21 09:30 Respiratory Rate 16 12/18/21 09:30 Blood Pressure 112/68 12/18/21 09:30 Pulse Oximetry 96 12/18/21 09:30 MDM - Abdominal Pain Medical Decision Making Patient comes in with right groin pain. States he had a angiogram last week and is on Eliquis. States that prior to leaving the hospital he had some bleeding in that area and was kept an extra day. States that this morning he noticed a little bit more swelling, but more severe pain in that area. He is concerned that he may be bleeding out. On physical exam he has a large hematoma in his right groin that is tender to palpation. Will check labs, treat pain with IV fentanyl, check ultrasound, and reassess. On reassessment I talked to the pt about the test results. I discussed the case with Dr Ochoa. The pt's hgb is 10.5. It was 11.2 when he left the hospital. U/S shows the hematoma with no signs of pseudoaneurysm. Will discharge home at this time with precautions to return for worsening or changing symptoms. The patient states he has pain medication at home. Lab Data : 12/18/21 09:12 12/18/21 09:12 Labs/Radiology: Laboratory Results WBC 7.1 10^3/uL (4.0-10.0) 12/18/21 09:12 RBC 3.41 10^6/uL (4.1-5.3) L 12/18/21 09:12 Hgb 10.5 g/dL (11.7-16.6) L 12/18/21 09:12 Hct 33.1 % (42.0-52.0) L 12/18/21 09:12 MCV 97.1 fl (80-94) H 12/18/21 09:12 MCH 30.8 pg (28.0-34.0) 12/18/21 09:12 MCHC 31.7 g/dL (30.0-36.0) 12/18/21 09:12 RDW 13.4 % (12.1-15.1) 12/18/21 09:12 Plt Count 225 10^3/cmm (130-400) 12/18/21 09:12 MPV 9.2 fL (7.4-10.4) 12/18/21 09:12 Neut % (Auto) 49.5 % 12/18/21 09:12 Lymph % (Auto) 36.5 % 12/18/21 09:12 [place] % (Auto) 8.6 % 12/18/21 09:12 Eos % (Auto) 4.4 % 12/18/21 09:12 Baso % (Auto) 0.4 % 12/18/21 09:12 Neut # (Auto) 3.49 10^3/uL (1.8-7.7) 12/18/21 09:12 Lymph # (Auto) 2.6 10^3/uL (0.8-4.8) 12/18/21 09:12 [place] # (Auto) 0.6 10^3/uL (0.2-0.9) 12/18/21 09:12 Eos # (Auto) 0.3 10^3/uL (0.0-0.8) 12/18/21 09:12 Baso # (Auto) 0.0 10^3/uL (0.0-0.1) 12/18/21 09:12 Nucleated RBC % (auto) 0 % 12/18/21 09:12 Nucleated RBCs # 0.0 /100WBC 12/18/21 09:12 Sodium 136 mmol/L (136-145) 12/18/21 09:12 Potassium 3.7 mmol/L (3.5-5.1) 12/18/21 09:12 Chloride 95 mmol/L (98-107) L 12/18/21 09:12 Carbon Dioxide 31 mmol/L (22-29) H 12/18/21 09:12 Anion Gap 13.7 (5-19) 12/18/21 09:12 BUN 31 mg/dL (8-23) H 12/18/21 09:12 Creatinine 1.4 mg/dL (0.7-1.2) H 12/18/21 09:12 GFR Calculation Not Reportable 12/18/21 09:12 Glucose 134 mg/dL (65-115) H 12/18/21 09:12 Calculated Osmolality 291 mOsm/kg (285-295) 12/18/21 09:12 Calcium 8.5 mg/dL (8.5-10.5) 12/18/21 09:12 Total Bilirubin 0.8 mg/dL (0.15-1.2) 12/18/21 09:12 AST 13 U/L (0-40) 12/18/21 09:12 ALT 10 U/L (0-41) 12/18/21 09:12 Alkaline Phosphatase 70 IU/L (40-130) 12/18/21 09:12 Total Protein 6.5 g/dL (6.6-8.7) L 12/18/21 09:12 Albumin 3.8 g/dL (3.5-5.2) 12/18/21 09:12 Globulin 2.7 g/dL (1.3-4.6) 12/18/21 09:12 Discharge Plan Discharge Patient Disposition: Home Clinical Impression: Hematoma Condition: Stable Prescriptions: No Action potassium chloride 10 mEq tablet,ER particles/crystals 10 meq PO DAILY Qty: 90 3RF terazosin 1 mg capsule 1 mg PO DAILY 0RF finasteride 5 mg tablet 5 mg PO DAILY 0RF meclizine 12.5 mg tablet 12.5 mg PO TID PRN (Reason: Dizziness) 0RF furosemide [Lasix] 20 mg tablet 20 mg PO DAILY 0RF Prolia 60 mg/mL syringe 60 mg SUBCUT ONCE Qty: 1 0RF albuterol sulfate [ProAir HFA] 90 mcg/actuation HFA aerosol inhaler 2 puff inhalation QID PRN (Reason: shortness of breath or wheezing) Qty: 6.7 0RF promethazine-DM 6.25-15 mg/5 mL syrup 5 - 10 ml PO Q6H PRN (Reason: cough) Qty: 240 0RF hydrocodone-acetaminophen 10-325 mg tablet 1 tab PO Q8H PRN (Reason: Pain, Mild) 0RF clonidine HCl 0.1 mg tablet 0.05 mg PO BID PRN (Reason: hypertensive emergency) Qty: 60 3RF pantoprazole 40 mg tablet,delayed release (DR/EC) 40 mg PO DAILY Qty: 90 3RF Eliquis 5 mg tablet 5 mg PO BID Qty: 180 3RF hydrochlorothiazide 12.5 mg tablet 12.5 mg PO BID Qty: 180 3RF isosorbide mononitrate 60 mg tablet extended release 24 hr 30 mg PO BID Qty: 90 3RF cilostazol 50 mg tablet 50 mg PO BID Qty: 180 0RF nitroglycerin 0.4 mg tablet, sublingual See Rx Instructions .ROUTE .COMPLEX Qty: 25 3RF Dose Instruction: DISSOLVE 1 TABLET UNDER TONGUE EVERY 5 MINUTES NEEDED FOR CHEST PAIN *NO MORE THAN 3 DOSES PER EPISODE* Rx Instructions: DISSOLVE 1 TABLET UNDER TONGUE EVERY 5 MINUTES NEEDED FOR CHEST PAIN *NO MORE THAN 3 DOSES PER EPISODE* losartan 100 mg tablet 50 mg PO BID Qty: 90 3RF Ranexa 500 mg tablet extended release 12 hr 1,000 mg PO BID Qty: 180 3RF Discharge Orders: Discharge ED (Routine); Ordered 12/18/21 Ordered By: Mingo Marshall Referrals: Damon Don DO [Primary Care Provider] - Coding Level of Care Code ED Sales And Catering Coordinator for Chg Fwd Exam Comprehensive
[2021-12-18 09:21] LABS: Basophils % 0.4 %; Eosinophils # 0.3 10^3/uL (0.0-0.8); Eosinophils % 4.4 %; Hematocrit 33.1 % (42.0-52.0); Hemoglobin 10.5 g/dL (11.7-16.6); Lymphocytes # 2.6 10^3/uL (0.8-4.8); Lymphocytes % 36.5 %; Mean Corpuscular HGB Conc 31.7 g/dL (30.0-36.0); Mean Corpuscular Hemoglobin 30.8 pg (28.0-34.0); Mean Corpuscular Volume 97.1 fl (80-94); Mean Platelet Volume 9.2 fL (7.4-10.4); Monocytes # 0.6 10^3/uL (0.2-0.9); Monocytes % 8.6 %; Neutrophils # 3.49 10^3/uL (1.8-7.7); Neutrophils % 49.5 %; Nucleated Red Blood Cells % 0 %; Platelet Count 225 10^3/cmm (130-400); Red Blood Count 3.41 10^6/uL (4.1-5.3); Red Cell Distribution Width 13.4 % (12.1-15.1); White Blood Count 7.1 10^3/uL (4.0-10.0)
[2021-12-18] MEDS: fentaNYL 50 mcg/mL INJ 2mL IVP ×2 (09:22→09:46)
[2021-12-18 09:30] VITALS: BP 112/68; PULSE 69; RESP 16; O2SAT 96
[2021-12-18 09:34] LABS: Alanine Aminotransferase 10 U/L (0-41); Albumin Level 3.8 g/dL (3.5-5.2); Alkaline Phosphatase 70 IU/L (40-130); Anion Gap 13.7 (5-19); Aspartate Amino Transferase 13 U/L (0-40); Blood Urea Nitrogen 31 mg/dL (8-23); Calcium 8.5 mg/dL (8.5-10.5); Carbon Dioxide 31 mmol/L (22-29); Chloride 95 mmol/L (98-107); Globulin 2.7 g/dL (1.3-4.6); Glucose 134 mg/dL (65-115); Osmolality Calculated 291 mOsm/kg (285-295); Potassium 3.7 mmol/L (3.5-5.1); Sodium 136 mmol/L (136-145); Total Bilirubin 0.8 mg/dL (0.15-1.2); Total Protein 6.5 g/dL (6.6-8.7)
[2021-12-18 10:36] VITALS: BP 114/65; PULSE 93; RESP 18; O2SAT 93
== END 2021-12-18 10:40 | disposition home or self-care (01) ==
PROVIDERS: Emergency Provider Emergency Medicine; PCP Internal Medicine
DX: L76.32 Postprocedural hematoma of skin and subcutaneous tissue following other procedure (principal); Y83.8 Other surgical procedures as the cause of abnormal reaction of the patient, or of later complication, without mention of misadventure at the time of the procedure; I25.10 Atherosclerotic heart disease of native coronary artery without angina pectoris; I10 Essential (primary) hypertension; M79.604 Pain in right leg; M79.89 Other specified soft tissue disorders
CPT/HCPCS: 80053; 85025; 93926; 96374; 99283; J3010

== ENCOUNTER 2021-12-20 21:04 | Emergency (ER) | payer MEDICARE, BC, SELFPAY ==
[2021-12-20] VITALS (8 sets, daily range): BP systolic 96–132; BP diastolic 56–86; PULSE 75–86; RESP 16–22; TEMP 36.8; O2SAT 88–98; BMI 29.8
--- NOTE | 2021-12-20 21:09 | CTR_ITS ---
PROCEDURE INFORMATION: Exam: CT Abdomen And Pelvis With Contrast Exam date and time: 12/20/2021 9:29 PM Age: 81 years old Clinical indication: Abdominal pain; Localized; Right lower quadrant (rlq); Prior surgery; Surgery date: 3-7 days post-operative; Surgery type: Heart cath on 12/13/2021. Aaa graft; Patient HX: Large hematoma to RT groin where patient had heart cath on 12/13/2021. C/O severe groin pain. ; Additional info: Right groin hematoma TECHNIQUE: Imaging protocol: Computed tomography of the abdomen and pelvis with contrast. Radiation optimization: All CT scans at this facility use at least one of these dose optimization techniques: automated exposure control; mA and/or kV adjustment per patient size (includes targeted exams where dose is matched to clinical indication); or iterative reconstruction. Contrast material: VISI 320; Contrast volume: 95 ml; Contrast route: INTRAVENOUS (IV); COMPARISON: NM bone scan whole body* [id number] 10/23/2021 10:30 AM RADIATION DOSE METRICS: Total DLP (mGy-cm): 3284 FINDINGS: Liver: Normal. No mass. Gallbladder and bile ducts: Surgical clips in the gallbladder fossa consistent with cholecystectomy. Pancreas: Normal. No ductal dilation. Spleen: Normal. No splenomegaly. Adrenal glands: Normal. No mass. Kidneys and ureters: Normal. No hydronephrosis. Stomach and bowel: Mild to moderate retained feces. Mild to moderate colonic diverticulosis. Appendix: No evidence of appendicitis. Intraperitoneal space: Unremarkable. No free air. No significant fluid collection. Vasculature: 4.1 cm fusiform infrarenal abdominal aortic aneurysm without rupture. Patent aortic bilateral iliac artery endovascular stent. Large 8.5 x 6.9 x 11.9 cm hematoma anteromedial to the right common femoral artery. 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 Axial series 4, images 87-89. Lymph nodes: Unremarkable. No enlarged lymph nodes. Urinary bladder: Unremarkable as visualized. Reproductive: Nonspecific prostate calcifications. Bones/joints: Sternotomy wires and mediastinal clips consistent with previous CABG procedure. Examination is limited by artifact from one or both arms by the patient's side. Soft tissues: Probable active bleeding of the pseudoaneurysm into the large 11.9 cm hematoma. Sagittal series 601, images 64-68. CT/CT abdomen pelvis w con* [id number] IMPRESSION: 1. 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 2. 4.1 cm fusiform infrarenal abdominal aortic aneurysm without rupture. 3. Patent aortic bilateral iliac artery endovascular stent. 4. Large 8.5 x 6.9 x 11.9 cm hematoma anteromedial to the right common femoral artery. 5. 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 Axial series 4, images 87-89. 6. Probable active bleeding of the pseudoaneurysm into the large 11.9 cm hematoma. Sagittal series 601, images 64-68.
[2021-12-20] MEDS: ondansetron 2 mg/ML SDV 2 mL 4 MG IVP (21:16)
[2021-12-20] MEDS: HYDROmorphone 1 mg/mL INJ 1 mL 0.5 MG IVP ×2 (21:16→22:03)
[2021-12-20] MEDS: iodixanol 320 mg/mL 100mL Btl IV (21:34)
[2021-12-20 21:36] LABS: Basophils % 0.2 %; Eosinophils # 0.1 10^3/uL (0.0-0.8); Eosinophils % 0.9 %; Hematocrit 32.4 % (42.0-52.0); Hemoglobin 10.7 g/dL (11.7-16.6); Lymphocytes # 2.5 10^3/uL (0.8-4.8); Lymphocytes % 27.5 %; Mean Corpuscular Hemoglobin 31.1 pg (28.0-34.0); Mean Corpuscular Volume 94.2 fl (80-94); Monocytes # 0.8 10^3/uL (0.2-0.9); Monocytes % 9.3 %; Neutrophils # 5.54 10^3/uL (1.8-7.7); Neutrophils % 61.7 %; Nucleated Red Blood Cells % 0 %; Platelet Count 241 10^3/cmm (130-400); Red Blood Count 3.44 10^6/uL (4.1-5.3); Red Cell Distribution Width 13.4 % (12.1-15.1)
--- NOTE | 2021-12-20 21:45 | ED_ITS ---
HPI - Extremity Problem General: Chief complaint: Extremity Problem,Nontraumatic Stated complaint: HEMO WAIST DOWN Time Seen by Provider: 12/20/21 21:06 Source: patient Mode of arrival: ambulatory Limitations: no limitations History of Present Illness: 81-year-old male who had a cardiac cath roughly a week ago he had had a hematoma after the cath. He states that continues to have some pain and swelling at the site. States his pain is sharp in nature and rates it an 8 out of 10 and states he like is it increased in size. Denies any injuries denies any lightheadeness. Denies any chest pain. Associated symptoms: Deny chest pain, fever(s) or rash Review of Systems Const: Denies: fever(s), chills, body aches or change in appetite Eyes: Denies: blurry vision or eye discomfort ENMT: Denies: throat pain or dental pain Card: Denies: chest pain Resp: Denies: dyspnea GI: Denies: abdominal pain, nausea, vomiting or diarrhea : Denies: dysuria Musc: Reports: extremity pain Skin/Breast: Denies: rash Neuro: Denies: headache(s) Psych: Denies: depression Benjy/Lymph: Denies: easy bruising All/Imm: Denies: urticaria PFSH ED PFSH: Medical History CAD (coronary artery disease) HTN (hypertension) Surgical History S/P AAA (abdominal aortic aneurysm) repair Family History Mother Hypertension Myocardial infarction Social History Smoking and tobacco status: former smoker Second hand smoke exposure: No Alcohol intake: current Alcohol intake frequency: holidays/special occasions only Alcohol type: beer History of recent travel: No Physical Exam Const: COMMON NORMALS: no acute distress, patient oriented x3 and healthy appearing HENMT: COMMON NORMALS: normocephalic and atraumatic HEAD & SCALP: normocephalic and atraumatic Eye: COMMON NORMALS: Equal, round and reactive pupils present and EOMs intact bilaterally PUPIL: Yes Equal, round and reactive pupils present Neck/C-Spine: COMMON NORMALS: full ROM and supple Chest: COMMONS NORMALS: normal inspection of the chest and normal palpation of entire chest wall Resp: COMMON NORMALS: normal respiratory effort, No retractions, No use of accessory muscles and clear to auscultation bilaterally AUSCULTATION: clear to auscultation bilaterally Cardio: COMMON NORMALS: regular rate, regular rhythm and No murmurs present (Cardio) RATE: regular rate RHYTHM: regular rhythm GI: COMMON NORMALS: Normal to inspection, nondistended, normoactive bowel sounds present, Soft to palpation, non-tender and no masses PALPATION: Yes Soft to palpation Extremity: COMMON NORMALS: full ROM NARRATIVE EXTREMITY EXAM: Large hematoma in right groin with swelling pulses are intact. Neuro: COMMON NORMALS: patient oriented x3, moves all extremities and no focal motor deficits Psych: COMMON NORMALS: mental status grossly normal, Normal thought process present and cooperative THOUGHT PROCESS: Normal thought process present Skin: COMMON NORMALS: no rashes or lesions noted and no wounds GENERAL SKIN EXAM: no rashes or lesions noted Course Vital Signs: Vital signs: Vital Signs Temperature 98.3 F 12/20/21 21:10 Pulse Rate 75 12/20/21 23:30 Respiratory Rate 16 12/20/21 23:30 Blood Pressure 114/86 12/20/21 23:30 Pulse Oximetry 98 12/20/21 23:30 MDM - Extremity (Nontraumatic) Medical Decision Making Patient presents here with hematoma to right groin CT scan does show a pseudoaneurysm. I spoke to cardiology who recommended vascular surgery for this. Attempted to call CT surgeon on-call multiple times on unable to get a hold of him did speak to CT surgeon at [place] and will transfer there for higher level of care patient needs CT surgery for pseudoaneurysm without leaking as well. Lab Data : 12/20/21 23:30 12/20/21 21:25 Radiology Impressions Abdomen/Pelvis CT 12/20/21 21:09 IMPRESSION: 1. 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 2. 4.1 cm fusiform infrarenal abdominal aortic aneurysm without rupture. 3. Patent aortic bilateral iliac artery endovascular stent. 4. Large 8.5 x 6.9 x 11.9 cm hematoma anteromedial to the right common femoral artery. 5. 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 Axial series 4, images 87-89. 6. Probable active bleeding of the pseudoaneurysm into the large 11.9 cm hematoma. Sagittal series 601, images 64-68. ADDENDUM: 12/20/21 2813 THIS REPORT CONTAINS FINDINGS THAT MAY BE CRITICAL TO PATIENT CARE. The findings were verbally communicated via telephone conference with MATTHIAS VERDE at 10:21 PM CDT on 12/20/2021. The findings were acknowledged and understood. Laboratory Results WBC 9.0 10^3/uL (4.0-10.0) 12/20/21 21: RBC 3.44 10^6/uL (4.1-5.3) L 12/20/21 21:25 Hgb 10.3 g/dL (11.7-16.6) L 12/20/21 23:30 Hct 30.6 % (42.0-52.0) L 12/20/21 23:30 MCV 94.2 fl (80-94) H 12/20/21 21:25 MCH 31.1 pg (28.0-34.0) 12/20/21 21:25 MCHC 33.0 g/dL (30.0-36.0) 12/20/21 21:25 RDW 13.4 % (12.1-15.1) 12/20/21:25 Plt Count 241 10^3/cmm (130-400) 12/20/21: MPV 10.0 fL (7.4-10.4) 12/20/21 21:25 Neut % (Auto) 61.7 % 12/20/21: Lymph % (Auto) 27.5 % 12/20/21:25 [place] % (Auto) 9.3 % 12/20/21: Eos % (Auto) 0.9 % 12/20/21: Baso % (Auto) 0.2 % 12/20/21: Neut # (Auto) 5.54 10^3/uL (1.8-7.7) 06/01/22 21:25 Lymph # (Auto) 2.5 10^3/uL (0.8-4.8) 12/20/21 21:25 [place] # (Auto) 0.8 10^3/uL (0.2-0.9) 12/20/21 21:25 Eos # (Auto) 0.1 10^3/uL (0.0-0.8) 12/20/21 21:25 Baso # (Auto) 0.0 10^3/uL (0.0-0.1) 12/20/21 21:25 Nucleated RBC % (auto) 0 % 12/20/21 21:25 Nucleated RBCs # 0.0 /100WBC 12/20/21 21:25 PT 15.10 SECONDS (12.1-14.9) H 12/20/21 21:25 INR 1.15 (0.8-1.2) 12/20/21 21:25 Sodium 135 mmol/L (136-145) L 12/20/21 21:25 Potassium 3.2 mmol/L (3.5-5.1) L 12/20/21 21:25 Chloride 91 mmol/L (98-107) L 12/20/21 21:25 Carbon Dioxide 30 mmol/L (22-29) H 12/20/21 21:25 Anion Gap 17.2 (5-19) 12/20/21 21:25 BUN 26 mg/dL (8-23) H 12/20/21 21:25 Creatinine 1.3 mg/dL (0.7-1.2) H 12/20/21 21:25 GFR Calculation Not Reportable 12/20/21 21:25 Glucose 116 mg/dL (65-115) H 12/20/21 21:25 Calculated Osmolality 286 mOsm/kg (285-295) 12/20/21 21:25 Calcium 8.7 mg/dL (8.5-10.5) 12/20/21 21:25 Total Bilirubin 1.2 mg/dL (0.15-1.2) 12/20/21 21:25 AST 13 U/L (0-40) 12/20/21 21:25 ALT 10 U/L (0-41) 12/20/21 21:25 Alkaline Phosphatase 66 IU/L (40-130) 12/20/21 21:25 Total Protein 6.5 g/dL (6.6-8.7) L 12/20/21 21:25 Albumin 3.8 g/dL (3.5-5.2) 12/20/21 21:25 Globulin 2.7 g/dL (1.3-4.6) 12/20/21 21:25 Critical Care Time Critical Care Time: Critical Care Time: Yes Total Critical Care Time: 40 Attestation: The high probability of a clinically significant, sudden or life threatening deterioration of the patient's vascular system(s) required my full and direct attention, intervention and personal management. The critical care time is as shown. This time is in addition to time spent performing any reported procedures but includes the following: [x] Data and vital sign review and interpretation [x] Patient assessment, examination and intervention [x] Documentation [x] Medication orders and management Discharge Plan Discharge Patient Disposition: Xfer Short-Term Hosp Clinical Impression: Pseudoaneurysm Condition: Stable Referrals: Damon Don DO [Primary Care Provider] - Coding Level of Care Code ED Director Of Leadership Development for Chg Fwd Exam Comprehensive
[2021-12-20 21:49] LABS: INR 1.15 (0.8-1.2)
[2021-12-20 21:54] LABS: Alanine Aminotransferase 10 U/L (0-41); Albumin Level 3.8 g/dL (3.5-5.2); Alkaline Phosphatase 66 IU/L (40-130); Anion Gap 17.2 (5-19); Aspartate Amino Transferase 13 U/L (0-40); Blood Urea Nitrogen 26 mg/dL (8-23); Calcium 8.7 mg/dL (8.5-10.5); Carbon Dioxide 30 mmol/L (22-29); Chloride 91 mmol/L (98-107); Globulin 2.7 g/dL (1.3-4.6); Glucose 116 mg/dL (65-115); Osmolality Calculated 286 mOsm/kg (285-295); Potassium 3.2 mmol/L (3.5-5.1); Sodium 135 mmol/L (136-145); Total Bilirubin 1.2 mg/dL (0.15-1.2); Total Protein 6.5 g/dL (6.6-8.7)
--- NOTE | 2021-12-20 22:54 | PC.NURSE ---
Patient placed on 2L o2- NC d/t desat into the low 80s during sleep. Pt has been above 94% on rm air while awake. states that he does snore at noc and they suspect sleep apnea but have not spoke with pcp at this point.
[2021-12-20 23:49] LABS: Hematocrit 30.6 % (42.0-52.0); Hemoglobin 10.3 g/dL (11.7-16.6)
[2021-12-21] VITALS: BP 104/62; PULSE 82; RESP 16; O2SAT 95
[2021-12-21 00:20] VITALS: RESP 16; O2SAT 94
[2021-12-21] MEDS: morphine 4 mg/mL SDV 1 mL IVP (00:20)
[2021-12-21 01:01] VITALS: BP 120/60; PULSE 71; RESP 16; O2SAT 94
--- NOTE | 2021-12-21 01:03 | PC.NURSE ---
ER TO ER Report called to Erica Pisano RN - [facility] ER. @ [phone]. Will notify her when ems leaves the facility.
[2021-12-21 01:57] VITALS: BP 120/60; PULSE 71; RESP 16; O2SAT 94
== END 2021-12-21 02:01 | disposition short-term general hospital (02) ==
PROVIDERS: Emergency Provider Emergency Medicine; PCP Internal Medicine
DX: I72.4 Aneurysm of artery of lower extremity (principal); I25.10 Atherosclerotic heart disease of native coronary artery without angina pectoris; I10 Essential (primary) hypertension; Z87.891 Personal history of nicotine dependence; Z98.890 Other specified postprocedural states
CPT/HCPCS: 74177; 80053; 85014; 85018; 85025; 85610; 86850; 86900; 96374; 96375; 96376; 99284; J1170; J2270; J2405; Q9967